=== PATIENT | female | born 1955 | race Caucasian/White ===

== ENCOUNTER → 2019-06-22 13:03 | Outpatient (BNVA) | payer MEDICARE, SELFPAY | PROVIDERS: Family Provider Family Medicine; PCP Internal Medicine Rheumatology; Visit Provider Internal Medicine Rheumatology | DX: M32.9 Systemic lupus erythematosus, unspecified (principal); M79.7 Fibromyalgia; Z79.899 Other long term (current) drug therapy; Z79.52 Long term (current) use of systemic steroids; M15.9 Polyosteoarthritis, unspecified | CPT/HCPCS: 99214 ==

== ENCOUNTER → 2019-09-06 12:54 | Outpatient (BNVA) | payer MEDICARE, SELFPAY | PROVIDERS: Family Provider Family Medicine; PCP Internal Medicine Rheumatology; Visit Provider Internal Medicine Rheumatology | DX: M32.9 Systemic lupus erythematosus, unspecified (principal); Z79.899 Other long term (current) drug therapy | CPT/HCPCS: 36415; 80076; 81001; 82565; 82570; 84156; 85025; 85651; 86140; 86160 ==

== ENCOUNTER → 2019-11-20 16:42 | Outpatient (BNVA) | payer MEDICARE, SELFPAY | PROVIDERS: Family Provider Family Medicine; PCP Internal Medicine Rheumatology; Visit Provider Nurse Practitioner Family | DX: R31.9 Hematuria, unspecified (principal); R35.0 Frequency of micturition | CPT/HCPCS: 81000; 87086 ==

== ENCOUNTER → 2019-11-29 12:52 | Outpatient (BNVA) | payer MEDICARE, SELFPAY | PROVIDERS: Family Provider Family Medicine; PCP Internal Medicine Rheumatology; Visit Provider Internal Medicine Rheumatology | DX: M32.9 Systemic lupus erythematosus, unspecified (principal); Z79.899 Other long term (current) drug therapy | CPT/HCPCS: 36415; 80076; 81001; 82565; 82570; 84156; 85025; 85651; 86140 ==

== ENCOUNTER → 2019-12-06 12:54 | Outpatient (BNVA) | payer MEDICARE, SELFPAY | PROVIDERS: Family Provider Family Medicine; PCP Internal Medicine Rheumatology; Visit Provider Internal Medicine Rheumatology | DX: M32.9 Systemic lupus erythematosus, unspecified (principal); I73.00 Raynaud's syndrome without gangrene; Z79.899 Other long term (current) drug therapy; M79.7 Fibromyalgia; Z79.52 Long term (current) use of systemic steroids; R91.1 Solitary pulmonary nodule; Z87.891 Personal history of nicotine dependence; M19.90 Unspecified osteoarthritis, unspecified site | CPT/HCPCS: 99214 ==

== ENCOUNTER 2019-12-09 10:26 | Outpatient (CLI) | payer MEDICARE, SELFPAY ==
--- NOTE | 2019-12-09 10:30 | XR_ITS ---
WS: [id number] SCREENING DEXA SCAN [id number] CLINICAL INFORMATION: intermediate teacher steroid use COMPARISON: FINDINGS: The L1-L4 bone mineral density measures 0.934 g/cm2. This corresponds to a T score score of -2.0 and Z score of 0.2. Left femoral neck bone mineral density measures 0.579 g/cm2. This corresponds to a T score of -3.4 an d Z score of -1.7. Right femoral neck bone mineral density measures 0.603 g/cm2. This corresponds to a T score -3.2of an d Z score of -1.6. Mean femoral neck bone mineral density measures 0.591 g/cm2. This corresponds to a T score of -3.3 an d Z score of -1.6. XR/XR DEXA axial skeleton* [id number] IMPRESSION: Osteoporosis Patient's FRAX calculated 10 year probability for major osteoporotic fracture i s 34.3 % and osteoporotic hip fracture is 12.7%.
--- NOTE | 2019-12-09 10:33 | XR_ITS ---
WS: [id number] Pelvis, AP view, 12/09/2019 Clinical Data: back pain Comparison: None. Findings: No fractures or dislocations are seen. The SI joints and pubic symphysis are intact. The soft tissues are not remarkable. The hips are normal. XR/XR pelvis 1-2V* [id number] Impression: Negative for fracture.
--- NOTE | 2019-12-09 10:33 | XR_ITS ---
WS: [id number] Thoracic spine, 3 views, 12/09/2019 Clinical Data: back pain Comparison: None. Findings: No compression fractures are seen. The disc heights are normal. The paravertebral regions are normal. Calcified granulomas are seen throughout the lungs. XR/XR thoracic spine 2V 25040 Impression: Negative thoracic spine.
--- NOTE | 2019-12-09 10:33 | XR_ITS ---
WS: [id number] Right RIBS, 3 views, 12/09/2019 Clinical Data: rib pain Comparison: Portable chest, 05/06/2018. Findings: No rib fractures are seen. There is no subcutaneous emphysema or pneumothorax. There are numerous gra nulomatous throughout the right lung. XR/XR ribs RT 2V* [id number] Impression: Negative right rib detail.
== END 2019-12-09 10:27 | disposition home or self-care (01) ==
LOC: RADWPI 10:29
PROVIDERS: Family Provider Family Medicine; PCP Family Medicine; Visit Provider Internal Medicine Rheumatology
DX: Z79.52 Long term (current) use of systemic steroids (principal); M54.9 Dorsalgia, unspecified; R07.81 Pleurodynia; M81.0 Age-related osteoporosis without current pathological fracture
CPT/HCPCS: 71100; 72070; 72170; 77080

== ENCOUNTER 2019-12-14 12:05 | Outpatient (CLI) | payer MEDICARE, SELFPAY ==
--- NOTE | 2019-12-14 12:45 | CT_ITS ---
WS: [id number] CT ABDOMEN AND PELVIS NONCONTRAST HISTORY: ABDOMINAL PAIN, WEIGHT LOSS TECHNIQUE: Imaging performed through the abdomen and pelvis. Coronal and sagittal reformats are submi tted. All CT scans at [facility] use at least one of these dose optimization techniques: automated exposure control; mA and/or kV adjustment per patient size (includes targeted exams where d ose is matched to clinical indication); or iterative reconstruction. DLP: 820.48 mGycm COMPARISON: 01/02/2015 Lower thorax: Chronic emphysematous changes at the lung bases. Benign granulomata. Heart size is norm al. Small hiatal hernia. Liver: Hepatic granulomata. Normal size liver. Gallbladder: Unremarkable. Pancreas: Normal. Spleen: Normal size spleen with multiple granulomata. Adrenal glands: Normal. Right kidney: Normal size with no stones, masses or atrophy. Left kidney: Normal size with no stones, mass or atrophy. Extensive atherosclerosis with no aneurysm. No free fluid, intraperitoneal air or significant lymphadenopathy. GI tract: There is moderate fecal retention throughout the GI tract. Circumferential wall thickening involving the cecum and the distal small bowel. This is a new finding since 2014. The appendix is not definitely identified. No significant diverticular disease. Abdominal wall: Intact. Pelvis: Prior hysterectomy. Normal urinary bladder. No adenopathy or fluid. Osseous structures: Osteopenia. Degenerative disc disease most significant at L5-S1. CT/CT abdomen pelvis wo con [id number] IMPRESSION: 1. Moderate constipation. 2. Cecal and distal small bowel wall thickening without an obstruction. Favor colitis. Due to the length of involvement neoplasm is less likely but not exclu ded. Consider follow-up colonoscopy or repeat CT in 4-6 weeks with IV and oral contrast. 3. Hepatic and splenic granulomata. 4. Extensive atherosclerosis aorta. 5. Prior hysterectomy. 6. Chronic emphysema.
[2019-12-14] MEDS: barium sulfate 450 mL Oral Susp PO (13:07)
== END 2019-12-14 12:06 | disposition home or self-care (01) ==
LOC: RADWPI 12:09
PROVIDERS: Family Provider Family Medicine; PCP Family Medicine; Visit Provider Family Medicine
DX: R10.9 Unspecified abdominal pain (principal); R63.4 Abnormal weight loss; K59.00 Constipation, unspecified; K75.3 Granulomatous hepatitis, not elsewhere classified; I70.0 Atherosclerosis of aorta; J43.9 Emphysema, unspecified
CPT/HCPCS: 74176

== ENCOUNTER 2019-12-21 09:44 | Outpatient (CLI) | payer MEDICARE, SELFPAY ==
--- NOTE | 2019-12-21 09:30 | USCV_ITS ---
Tiana Wayne Age: 64 Gender: F : 1955 Exam Date: 12/21/2019 09:59 Ordering Phys: Jesus Dorado MD (Andy) ([email or web address] [place]) Technologist: Grisel Solis [place]am Location: [facility] [place] Indication: RECHECK CCA STENOSIS Risk Factors: Unknown Previous Vascular Surgery: None Right Brachial BP: / Left Brachial BP: / Right Left Velocity (cm/s) Spectral Plaque Velocity (cm/s) Spectral Plaque Syst/Diast Broadening Syst/Diast Broadening 88.20/ 13.20 Prox CCA 52.60 / 19.20 49.30/ 9.20 Hetro Mid CCA 44.60 / 11.30 Hetro 45.40/ 11.20 Hetro Distal CCA 30.40 / 6.40 Hetro 49.50/ 14.50 Hetro Prox ICA 127.40/ 24.50 Hetro 54.90/ 16.30 Hetro Mid ICA 187.80/ 45.70 Hetro 52.50/ 19.30 Distal ICA 209.00/ 40.80 61.10 Hetro ECA 79.00 1.11 ICA/CCA 4.68 Antegrade Vertebral Antegrade 45.30/ 10.90 cm/s 75.80/ 12.80 cm/s Tri Subclavian Tri 104.3 79.00 0 FINDINGS Comparison:. 03/02/19. Diffuse bilateral scattered calcified plaque and intimal thickening throughout the common carotid arteries and extending through the bifurcation. Mild turbulence of flow on the right. No change in velocity of stenosis. Moderate elevation of velocity left ICA similar to prior exam. CONCLUSIONS Left ICA stenosis 50-69%. Similar to prior study and stenosis closer to 69%. Right ICA stenosis < 50%. Diffuse bilateral calcified plaque. Dr. Charisse Boggs DO (Electronically Signed) Final Date: 21 December 2019 14:15 S
== END 2019-12-21 09:45 | disposition home or self-care (01) ==
LOC: RAD 09:48
PROVIDERS: Family Provider Family Medicine; PCP Family Medicine; Visit Provider Thoracic Surgery (Cardiothoracic Vascular Surgery)
DX: I65.23 Occlusion and stenosis of bilateral carotid arteries (principal)
CPT/HCPCS: 93880

== ENCOUNTER 2020-01-27 12:51 | Outpatient (CLI) | payer MEDICARE, SELFPAY ==
--- NOTE | 2020-01-27 12:58 | CT_ITS ---
WS: [id number] CT CHEST, ABDOMEN, AND PELVIS TECHNIQUE: Contrast-enhanced CT of the chest, abdomen, and pelvis with coronal and sagittal reformatt ed images. CLINICAL INFORMATION: CONSTIPATION/ABNORMAL FINDING OF LUNG FIELD COMPARISON: Multiple prior examinations including CT abdomen pelvis December 06, 2019, CT chest October 26, 2019, July 06, 2019, PET/CT and CT chest DLP: 941.[address] scans at [facility] use at least one of these dose optimization techniques: automat ed exposure control; mA and/or kV adjustment per patient size (includes targeted exams where dose is matched to clinical indication); or iterative reconstruction. CT CHEST: Advanced chronic emphysematous changes. Noncalcified pulmonary opacity in the left upper lobe measuri ng 7 mm. Additional lobulated micronodular opacities in the right upper lobe measuring 9 mm. Addition al tree-in-bud infiltrates in both lower lobes can be seen with small airways disease. Additional 3 m m noncalcified nodule right upper lobe. Scattered fibrosis in both lungs. A few calcified granulomas. Normal thyroid gland. Aortic calcificat ion. No axillary lymphadenopathy. Calcified right hilar lymph nodes. CT ABDOMEN AND PELVIS: Normal liver. Normal portal vein and splenic vein. Splenic granulomas. Adrenal glands are normal. Nor mal renal parenchymal enhancement. No hydronephrosis. Aortic calcification. Normal caliber abdominal aorta. Gallbladder is contracted. Normal GE junction. No evidence of small or large bowel obstruction. Const ipation improved from previous. No free fluid in the pelvis. No periaortic or inguinal lymphadenopath y. Mild thoracic curve. No acute appearing compression fractures. Mild disc space narrowing L3-L4 and L5-S1. CT/CT chest abd pel w con* IMPRESSION: 1. Prior hysterectomy. 2. Previously described cecal and distal small bowel wall thickening is less p rominent today. No evidence of small or large bowel obstruction. 3. Moderate chronic emphysematous changes. 4. Noncalcified spiculated pulmonary nodule in the left upper lobe measuring 7 mm previously was shown to be FDG avid suspicious for neoplasm. This is unchan ged since October 26, 2019. 5. Additional micronodular opacities in the right upper lobe similar to the p rior examination. 6. Mild tree-in-bud infiltrates in the lower lobes. 7. Subsegmental atelectasis and scattered fibrosis in both lungs. 8. No mediastinal or hilar lymphadenopathy. 9. No abdominal or pelvic lymphadenopathy.
[2020-01-27] MEDS: iohexol 300 mg/mL 50 mL Btl PO (13:26)
[2020-01-27 14:00] LABS: Blood Urea Nitrogen 10 mg/dL (8-23); Glomerular Filtration Rate 160.2 mL/min (90-130)
[2020-01-27] MEDS: iodixanol 320 mg/mL 100mL Btl IV (14:27)
== END 2020-01-27 12:52 | disposition home or self-care (01) ==
LOC: RAD 12:52
PROVIDERS: PCP Family Medicine; Visit Provider Family Medicine
DX: K52.9 Noninfective gastroenteritis and colitis, unspecified (principal); K59.00 Constipation, unspecified; R91.8 Other nonspecific abnormal finding of lung field; R91.1 Solitary pulmonary nodule; J98.11 Atelectasis
CPT/HCPCS: 36415; 71260; 74177; 82565; 84520

== ENCOUNTER → 2020-04-27 14:58 | Outpatient (BNVA) | payer MEDICARE, SELFPAY | PROVIDERS: PCP Family Medicine; Visit Provider Internal Medicine Rheumatology | DX: M32.9 Systemic lupus erythematosus, unspecified (principal); R76.8 Other specified abnormal immunological findings in serum; Z79.899 Other long term (current) drug therapy; M15.9 Polyosteoarthritis, unspecified; M79.7 Fibromyalgia; I47.1 Supraventricular tachycardia; I65.29 Occlusion and stenosis of unspecified carotid artery; Z87.891 Personal history of nicotine dependence | CPT/HCPCS: 36415; 80076; 81001; 82306; 82310; 82565; 82570; 84156; 85025; 85651; 86140; 86160; 99214 ==

== ENCOUNTER → 2020-06-22 11:22 | Outpatient (BNVA) | payer MEDICARE, OTHER, SELFPAY | PROVIDERS: PCP Family Medicine; Visit Provider Internal Medicine Rheumatology | DX: M32.9 Systemic lupus erythematosus, unspecified (principal); Z79.899 Other long term (current) drug therapy; M19.90 Unspecified osteoarthritis, unspecified site | CPT/HCPCS: 36415; 80076; 81001; 82565; 84156; 85025; 86140; 86160; 87086 ==

== ENCOUNTER 2020-07-25 12:20 | Outpatient (CLI) | payer MEDICARE, OTHER, SELFPAY ==
--- NOTE | 2020-07-25 12:45 | USCV_ITS ---
Tiana Wayne Age: 65 Gender: F : 1955 Exam Date: 07/25/2020 12:51 Ordering Phys: Jesus Dorado MD (Andy) ([email or web address] [place]) Technologist: Joann Ricks Exam Location: [facility] [place] Indication: STENOSIS Risk Factors: Previous Vascular Surgery: Right Brachial BP: / Left Brachial BP: / Right Left Velocity (cm/s) Spectral Plaque Velocity (cm/s) Spectral Plaque Syst/Diast Broadening Syst/Diast Broadening 80.50/ 22.10 Prox CCA 89.30 / 22.10 52.90/ 16.50 Mid CCA 80.50 / 20.90 55.20/ 8.50 Distal CCA 66.20 / 15.40 69.50/ 17.60 Prox ICA 260.30/ 73.60 61.70/ 18.70 Mid ICA 257.70/ 68.40 67.30/ 16.50 Distal ICA 113.10/ 26.30 93.70 ECA 118.00 0.86 ICA/CCA 2.91 Antegrade Vertebral Antegrade 41.90/ 8.80 cm/s 58.30/ 20.10 cm/s Tri Subclavian Tri FINDINGS Heavy heterogeneous irregular plaques at the left bifurcation and proximal to mid ICA on the left side. Mild to moderate plaques of the right bifurcation and proximal ICA. Intimal thickening in the common carotid arteries bilaterally. Antegrade flow in the vertebral arteries bilaterally. Normal Doppler flow velocities in the subclavian arteries bilaterally CONCLUSIONS Heavy heterogeneous irregular plaques at the left bifurcation and proximal to mid ICA on the left side with features suggestive of greater than 70% stenosis Mild to moderate plaques of the right bifurcation with features suggestive of less than 50% gnosis Intimal thickening in the common carotid arteries bilaterally Compared to the study from 12/21/2019, there is some worsening of stenosis on the left side Dr Alanna Dupont MD [facility] (Electronically Signed) Final Date: 26 July 2020 01:05 S
== END 2020-07-25 12:21 | disposition home or self-care (01) ==
LOC: RAD 12:23
PROVIDERS: PCP Family Medicine; Visit Provider Thoracic Surgery (Cardiothoracic Vascular Surgery)
DX: I65.23 Occlusion and stenosis of bilateral carotid arteries (principal)
CPT/HCPCS: 93880

== ENCOUNTER → 2020-09-06 12:54 | Outpatient (BNVA) | payer MEDICARE, OTHER, SELFPAY | PROVIDERS: PCP Family Medicine; Visit Provider Internal Medicine Rheumatology | DX: M32.9 Systemic lupus erythematosus, unspecified (principal); M15.9 Polyosteoarthritis, unspecified; Z79.899 Other long term (current) drug therapy; M47.892 Other spondylosis, cervical region; M47.896 Other spondylosis, lumbar region; M79.7 Fibromyalgia; D64.9 Anemia, unspecified; Z87.891 Personal history of nicotine dependence | CPT/HCPCS: 99214 ==

== ENCOUNTER → 2020-09-11 14:06 | Outpatient (BNVA) | payer MEDICARE, OTHER, SELFPAY | PROVIDERS: PCP Family Medicine; Visit Provider Podiatrist Foot & Ankle Surgery | DX: M25.572 Pain in left ankle and joints of left foot (principal) | CPT/HCPCS: 73630 ==

== ENCOUNTER 2020-10-19 12:00 | Outpatient (CLI) | payer MEDICARE, OTHER, SELFPAY | END 2020-10-19 12:01 | disposition home or self-care (01) | LOC: SLEEP 10-24 08:54 | PROVIDERS: PCP Family Medicine; Visit Provider Internal Medicine Critical Care Medicine | DX: J96.12 Chronic respiratory failure with hypercapnia (principal) | CPT/HCPCS: 94762 ==

== ENCOUNTER 2020-11-07 12:46 | Outpatient (CLI) | payer MEDICARE, SELFPAY ==
--- NOTE | 2020-11-07 13:00 | CT_ITS ---
WS: [id number] CT CHEST TECHNIQUE: Noncontrast CT of the chest with coronal and sagittal reformatted images. CLINICAL INFORMATION: Pulmonary nodule COMPARISON: CT 01/27/2020 and 10/26/2019 July 06, 2019 DLP: 533.[address] scans at [facility] use at least one of these dose optimization techniques: automat ed exposure control; mA and/or kV adjustment per patient size (includes targeted exams where dose is matched to clinical indication); or iterative reconstruction. FINDINGS: Moderate chronic emphysematous changes. Increased spiculated pulmonary nodule left upper lobe measur ing 8.8 mm suspicious for neoplasm. This appears more solid today. This was previously shown to be FD G avid most consistent with neoplasm. Micronodular and tree-in-bud opacities in right upper lobe and bilateral lower lobes similar to previ ous. No mediastinal or hilar lymphadenopathy. Several new subcentimeter approximately 3 mm noncalcifi ed nodules in both lungs some subpleural in location. These may be inflammatory. Bibasal atelectasis. Scattered fibrosis in both lungs. Subsegmental atelectasis/fibrosis in the right middle lobe.. Calcified granulomatous disease. Normal thyroid gland. Aortic calcification. Calcified hilar lymph no wilfredo. CT/CT chest wo con [id number] IMPRESSION: 1. Progressed slightly spiculated pulmonary nodule left upper lobe measuring 8 .8 mm suspicious for neoplasm. This appears slightly larger and more solid in a ppearance today. Previously this was demonstrated to be FDG avid. 2. No other significant changes from previous. 3. No mediastinal or hilar lymphadenopathy. 4. Aortic calcification. 5. Stable tree-in-bud micronodular opacities described above. 6. Several new noncalcified subcentimeter nodules largest measuring approximat atul 3 mm within both lungs. Some of these may be inflammatory. Recommend 6 yovany h follow-up.
== END 2020-11-07 12:47 | disposition home or self-care (01) ==
PROVIDERS: PCP Family Medicine; Visit Provider Internal Medicine Critical Care Medicine
DX: R91.1 Solitary pulmonary nodule (principal); I70.0 Atherosclerosis of aorta
CPT/HCPCS: 71250

== ENCOUNTER 2020-11-24 15:11 | Outpatient (CLI) | payer MEDICARE, SELFPAY ==
--- NOTE | 2020-11-24 11:00 | USCV_ITS ---
Tone Tiana Age: 65 Gender: F : 1955 Exam Date: 11/24/2020 15:40 Ordering Phys: Kaleigh Carlson MD Technologist: Grisel Solis Exam Location: [facility] [place] Indication: SOB WITH CHEST PAIN BP: 119 / 69 HR: 90 Rhythm: Sinus Technical Quality: Fair MEASUREMENTS (Male / Female) Normal Values 2D ECHO LV Diastolic Diameter PLAX 2.9 cm 4.2 - 5.9 / 3.9 - 5.3 cm LV Systolic Diameter PLAX 1.4 cm LV Chamber Size 3.4 cm IVS Diastolic Thickness 0.9 cm 0.6 - 1.0 / 0.6 - 0.9 cm IVS Systolic Thickness 1.1 cm LVPW Diastolic Thickness 1.5 cm 0.6 - 1.0 / 0.6 - 0.9 cm LVPW Systolic Thickness 1.9 cm RV Chamber Size 3.0 cm LVOT Diameter 2.0 cm LV Ejection Fraction 2D Teich 83.4 % LV Ejection Fraction MOD 2C 59.8 % LV Ejection Fraction 2C AL 59.7 % LA Diameter 2.5 cm LA Width 2.5 cm LA Height 2.8 cm RA Width 2.3 cm RA Height 2.9 cm Aorta at Sinotubular Diameter 2.2 cm M-MODE LV Diastolic Diameter MM 3.8 cm 4.2 - 5.9 / 3.9 - 5.3 cm LV Systolic Diameter MM 1.8 cm LV Ejection Fraction MM Teich 82.6 % IVS Diastolic Thickness MM 0.8 cm 0.6 - 1.0 / 0.6 - 0.9 cm IVS Systolic Thickness MM 1.1 cm LVPW Diastolic Thickness MM 1.1 cm 0.6 - 1.0 / 0.6 - 0.9 cm LVPW Systolic Thickness MM 1.3 cm RV Diastolic Diameter MM 1.5 cm Aortic Annulus Diameter 2.5 cm LA Ao Ratio MM 1.2 MV E Point Septal Separation 0.2 cm DOPPLER AV Peak Velocity 140.0 cm/s LVOT Peak Velocity 122.0 cm/s AV Area Cont Eq vti 2.7 cm squared AV Area Cont Eq pk 2.7 cm squared MV Area PHT 5.8 cm squared Mitral E to A Ratio 1.3 MV E' Velocity 63.0 cm/s Mitral E to MV E' Ratio 9.8 Mitral E to LV E' Lateral Ratio 11.6 Mitral E to LV E' Septal Ratio 8.5 TR Peak Velocity 299.7 cm/s TR Peak Gradient 35.9 mmHg TR Mean Velocity 218.9 cm/s TR Mean Gradient 21.8 mmHg TR Velocity Time Integral 97.4 cm TV Peak E Velocity 72.0 cm/s Right Atrial Pressure 3.0 mmHg Pulmonary Artery Systolic Pressu 38.9 mmHg PV Peak Velocity 63.0 cm/s RV Acceleration Time 0.1 s RV Ejection Time 0.3 s RV AcT/ET 0.3 FINDINGS Left Ventricle Normal left ventricular size. LV systolic function is normal with EF of 60-65%. No regional wall motion abnormalities. Normal diastolic filling pattern. Right Ventricle The right ventricle is normal in size and function. Right Atrium The right atrium is normal in size. Left Atrium The left atrium is normal in size. Mitral Valve Structurally normal mitral valve without significant stenosis or prolapse. There is no mitral regurgitation. Aortic Valve Structurally normal aortic valve without significant sclerosis or stenosis. There is no aortic regurgitation. Tricuspid Valve Structurally normal tricuspid valve without significant stenosis. Mild tricuspid regurgitation. RVSP is 45-50mmHg. This is consistent with moderate pulmonary hypertension Pulmonic Valve Structurally normal pulmonic valve without significant stenosis. There is no pulmonic regurgitation. Pericardium Normal pericardium without effusion. Aorta Normal ascending aorta dimension. CONCLUSIONS LV systolic function is normal with EF of 60-65% Diastolic function is normal Moderate pulmonary hypertension Compared to prior echocardiogram from 05/09/2016, patient is noted to have pulmonary hypertension now Nash Clancy MD (Electronically Signed) Final Date: 03 December 2020 17:50 S
== END 2020-11-24 15:12 | disposition home or self-care (01) ==
LOC: RAD 15:14
PROVIDERS: PCP Family Medicine; Visit Provider Internal Medicine Critical Care Medicine
DX: R06.02 Shortness of breath (principal); R07.9 Chest pain, unspecified; I27.20 Pulmonary hypertension, unspecified
CPT/HCPCS: 93306

== ENCOUNTER 2020-11-28 09:52 | Outpatient (CLI) | payer MEDICARE, SELFPAY ==
--- NOTE | 2020-11-28 18:55 | ONC CON_ITS ---
Dr. Wayne New Patient Note Patient: Tiana Wayne Unit #: [id number]: 1955 Dicatated By: Morgan Wayne M.D.Date of Visit: Nov 28, 2020 Onc MED New Patient/Consult Referring Physician: Dr. BARB CARLSON M.D. Chief Complaint: Pulmonary nodule/suspected lung cancer. History of Present Illness: This is a 65-year-old woman with CT evidence of left upper lobe pulmonary nodule and suspected lung cancer. She has multiple medical illnesses, the most significant being COPD and longstanding systemic lupus erythematosus. She is oxygen dependent. She has been followed for small pulmonary nodules by CT scan dating back to at least 2010. A prior PET/CT in February 2015 showed a small area of pneumonitis in the medial segment of the right middle lobe with SUV less than 1.0. There were no findings which were suspicious for malignancy. A follow-up chest CT on 12/17/2018 showed an enlarging apical posterior segment left upper lobe nodule which was felt to be suspicious for neoplasm. A repeat PET/CT on 01/09/2019 showed a solid left upper lobe nodule measuring 7 mm with SUV 1.4. It was felt to have a high probability of malignancy. On a repeat chest CT on 04/09/2019 the left upper lobe nodule appeared stable, measuring 8 mm. There is no mediastinal or hilar adenopathy noted. She had repeat chest CT scans in June 2019 and in October 2019, but for some reason neither of those reports are occluded in [facility]. Her chest CT on 01/18/2020 showed stable noncalcified pulmonary opacity in the left upper lobe measuring 7 mm[address] Her most recent CT, from 11/07/2020, showed slight progression of the left upper lobe nodule measuring 8.8 mm. There was no mediastinal or hilar adenopathy noted. Several new noncalcified subcentimeter nodules were noted within both lungs, the largest measuring approximately 3 mm. As noted, she has oxygen dependent COPD. She has very limited activity tolerance, but she is ambulatory and she is able to live independently. Her ECOG score is 2. Her family says that she eats like a bird. Her weight fluctuates up and down. She has not had fever or night sweats. She does report having chills. Her main complaint now is that for the past 3 months she has been having pain in her epigastric area. The pain is significant enough to affect her breathing. She has been taking Prilosec, she says it is not really helping. She has some cough, but not a lot. She occasionally has sharp chest pain. She does not complain of nausea and she is not having any obvious acid reflux symptoms. She does complain that she keeps a lot of gas. The epigastric pain oftentimes wakes her up around 3 or 4 AM. Her bowel function has been pretty good. She has no complaints. She has fairly generalized joint pain including the hands, wrists, elbows, hips, and knees. She also has pain in her neck and back. She has headache about every other day and she also complains of dizziness. She has some numbness in her fingers and in her feet. Past Medical History: Her medical history includes carotid artery disease, cervical sponylosis with radiculopathy, chronic obstructive pulmonary disease, fibromyalgia, history of pulmonary embolilsm, Raynaud's phenomenon, systemic lupus erythematosus, and Vitamin D deficiency. Past Surgical History: Her surgical/procedural history includes section x 2, hysterectomy, and tonsillectomy. Medications: ALPRAZolam (0.25 mg) Tablet Oral daily PRN, Apixaban (2.5 mg) Tablet Oral b.i.d., Azithromycin (250 mg) Tablet Oral daily, Budesonide (90 mcg/act) Aerosol Powder, Breath Activated Inhalation b.i.d., Cholecalciferol (25 mcg ) Tablet Oral daily, Diclofenac Sodium Gel (jelly) Topical four times a day PRN, Fish Oil [place]-3 Capsule Oral daily, Formoterol Fumarate (20 mcg/2mL) Nebulization solution Inhalation b.i.d., Furosemide (20 mg) Tablet Oral daily, HYDROcodone-Acetaminophen (5-325 mg) Tablet Oral four times a day PRN, Hydroxychloroquine Sulfate (200 mg) Tablet Oral daily, Leflunomide (20 mg) Tablet Oral daily, Metoprolol Succinate ER (25 mg) Tablet SR 24 HR Oral b.i.d., Omeprazole (40 mg) Capsule Delayed Release Oral daily, Ondansetron HCl (4 mg) Tablet Oral t.i.d. PRN, Potassium Chloride ER (10 meq) Capsule, controlled release Oral daily, Revefenacin (175 mcg/3mL) Solution Inhalation daily, Sertraline HCl (25 mg) Tablet Oral daily, Ventolin HFA (108 (90 base) mcg/act) Aerosol, solution Inhalation four times a day PRN Allergies: Ciprofloxacin HCl, Dicloxacillin Sodium, Digoxin, and Iodinated Contrast Media. Social History: Ms. Wayne is . She has a history of smoking 1 pack of cigarettes daily beginning at age 13. She quit smoking in 2013. She has had just very occasional alcohol use. Family History: Father of lung cancer at age 80. Her paternal grandmother also had lung cancer. Mother with Alzheimer's dementia at age 77. A sister also has lupus. Another sister and a brother are in good health. Review Of Symptoms: Constitutional - She has limited activity tolerance, but she is still ambulatory and able to live independently. She does not have good appetite. Her family says she eats like a bird. Her weight is up and down. She does not have fever or night sweats, but she does complain of having chills. ECOG score is 2, Eyes - She says her vision is getting worse, ENMT - No hearing loss or tinnitus. She does complain of the oxygen dries out her nose, mouth, and throat. She does not have difficulty swallowing, Hematologic/Lymphatic - She has easy bruising, Respiratory - She has shortness of breath and she is on continuous oxygen. Lately she has had more difficulty breathing due to the pain in her upper abdomen. She has some cough, but not a lot. No pleuritic pain or hemoptysis, Cardiovascular - No angina pain. No palpitations, Gastrointestinal - No nausea or vomiting. No heartburn or acid reflux. She does complain that she has a lot of gas, and she has been having pain in her epigastric area. It oftentimes wakes her up at 3 or 4 AM. Bowel function is pretty good. No blood in the stool or black stools, Genitourinary (F) - No dysuria or hematuria. No urinary frequency. No urgency or incontinence, Musculoskeletal - She has fairly generalized joint pain including the hands, elbows, wrists, hips, and knees. She also has neck and back pain, Integumentary - Her skin is dry and itchy, Neurologic - She has headache about every other day. She also complains of dizziness. She has numbness in her fingers and feet, Psychiatric - She has anxiety and panic attacks. No depression. She has difficulty sleeping. Vital Signs: Performed on Nov 28, 2020 11:28: 7, 8, 20.16, 1.48 sq.m, 62 in, 98 %, 78 /min, 18 /min, 164/61 mm(hg) (HIGH), 97.0 F (LOW), and 110.2 lbs (HIGH). Physical Examination: Constitutional - She appears generally weak and chronically ill, Eyes - Sclerae nonicteric. Conjunctivae clear, ENMT - No lesions noted in the oral cavity, Neck - No mass or thyromegaly, Hematologic/Lymphatic - No cervical, clavicular, or axillary adenopathy, Respiratory - Lungs are clear with diminished air movement bilaterally, Cardiovascular - Heart rhythm is regular. There is no murmur, gallop, or rub noted, Abdomen - Soft. There is mild tenderness in the epigastric area. Liver and spleen are not enlarged. There is no abdominal mass or ascites noted and there is no inguinal adenopathy, Back/Spine - No spine or CVA tenderness noted, Extremities - There is mild lower extremity edema. Dorsalis pedis pulses are palpable bilaterally, Integumentary - No rashes. No suspicious skin lesions noted, Neurologic - No focal neurologic deficits noted. Problem List: 1. Noncalcified left upper lobe pulmonary nodule which was previously PET positive and suspicious for malignancy. 2. Oxygen dependent COPD. 3. Systemic lupus. 4. Carotid artery disease. 5. Fibromyalgia. 6. Degenerative disease of the spine. 7. Vitamin D deficiency. 8. History of pulmonary embolism. 9. Chronic anxiety. Problems Addressed with this Encounter and Plan: Patient with noncalcified left upper lobe pulmonary nodule which was previously PET positive and felt to be suspicious for malignancy. Her recent chest CT reported a slight increase in the size of the pulmonary nodule, which further increases the suspicion for malignancy. Management is complicated by severe COPD and additional comorbidities. She has very marginal performance status. She would be at high risk for complications with any type of biopsy procedure, and she would be medically unsuitable for surgical resection. If we were to consider treating this as lung cancer, the lesion would potentially be amenable to SBRT, but it would have to be done without the benefit of biopsy/tissue diagnosis. On my independent review of the CT scan with the patient and her family, there does not appear to be a significant change in the left upper lobe nodule compared to the previous CT scan from October 2019. There has been, at most, only very minimal change during a follow-up. Of close to 2 years. While I cannot exclude the possibility of this being a very slowly progressive malignancy, in this situation I think the best option is to continue with surveillance/expectant management with repeat CT scans at 6-month intervals. If there is a significant increase in the size of the lesion, it would be reasonable then to consider SBRT without a biopsy. At this point, I do not feel that the CT findings are significant enough to justify empiric treatment. At least for now she is going to continue her regular follow-up with Dr. Carlson. I will plan to see her again as needed. Signed By: Morgan Wayne M.D. <<Signature on File>>
== END 2020-11-28 09:53 | disposition home or self-care (01) ==
LOC: ONCMED 09:56
PROVIDERS: PCP Family Medicine; Visit Provider Internal Medicine Medical Oncology
DX: R91.1 Solitary pulmonary nodule (principal); J44.9 Chronic obstructive pulmonary disease, unspecified; Z99.81 Dependence on supplemental oxygen; M32.9 Systemic lupus erythematosus, unspecified; I25.10 Atherosclerotic heart disease of native coronary artery without angina pectoris; M79.7 Fibromyalgia; M47.9 Spondylosis, unspecified; E55.9 Vitamin D deficiency, unspecified; Z86.711 Personal history of pulmonary embolism; F41.9 Anxiety disorder, unspecified; Z79.899 Other long term (current) drug therapy
CPT/HCPCS: 99205

== ENCOUNTER 2020-12-08 12:35 | Outpatient (CLI) | payer MEDICARE, SELFPAY ==
--- NOTE | 2020-12-08 12:51 | MR_ITS ---
WS: [id number] MRA HEAD TECHNIQUE: Axial 3-D TOF images obtained with axial images and axial, sagittal, and coronal 2-D refor matted images. CLINICAL INFORMATION: UNSPECIFIED HEARING LOSS, UNSPECIFIED EAR COMPARISON: None. FINDINGS: Dominant distal left vertebral artery. Right vertebral artery ends in PICA. Basilar artery is patent. Normal vascularity to the RAGMAN territory bilaterally. Patent right posterior communicating artery. Both ICAs are patent at the skull base. Normal petrous ICAs. No evidence of aberrant ICA. Patent anterior communicating artery. Normal vascularity to the SHU and MCA territories bilaterally. No evidence of flow-limiting stenosis or aneurysm. MR/MR angio head wo con [id number] IMPRESSION: Normal intracranial MRA.
--- NOTE | 2020-12-08 12:52 | MR_ITS ---
WS: [id number] INDICATION: Right ear pain and headaches dizziness TECHNIQUE: MR venogram with multiplanar reformatted images. FINDINGS: Normal sagittal sinus. Normal straight sinus. Sigmoid sinuses are normal. Normal transverse sinuses. Normal internal cerebral veins. Distal jugular veins are normal. No evidence of dural sinus thrombosis. MR/[place] [id number] IMPRESSION: Normal MR venogram.
--- NOTE | 2020-12-08 13:03 | CT_ITS ---
WS: [id number] CT scan of the temporal bones. Additional two-dimensional coronal and sagittal reconstruction was per formed. 12/08/2020 Clinical Data: HEARING Loss, tinnitus UNSPECIFIED EAR Comparison: None. DLP: 712.[address] scans at [facility] use at least one of these dose optimization techniques: automat ed exposure control; mA and/or kV adjustment per patient size (includes targeted exams where dose is matched to clinical indication); or iterative reconstruction. Findings: The external auditory canals are normal. The malleolus, incus and stapes appear to be normal. The se micircular canals show no erosions. The internal auditory canal is normal. The attic shows no erosion or evidence of a cholesteatoma. The adjacent mastoid air cells appear to be normal. The carotid autumn ls are not eroded. There is mucoperiosteal thickening of the right maxillary sinus. The mastoid air c ells are not remarkable. CT/CT temporal bone wo con* [id number] Impression: Negative CT scan of the temporal bones.
== END 2020-12-08 12:36 | disposition home or self-care (01) ==
LOC: RADWPI 12:40
PROVIDERS: PCP Family Medicine; Visit Provider Specialist
DX: H91.90 Unspecified hearing loss, unspecified ear (principal); H93.19 Tinnitus, unspecified ear
CPT/HCPCS: 70480; 70544

== ENCOUNTER 2020-12-26 13:30 | Outpatient (CLI) | payer MEDICARE, SELFPAY ==
[2020-12-26 14:05] LABS: ABG PH Result 7.34 (7.35-7.45); Blood Gas Allen Test Pos; Blood Gas Sample Site Radial, left; Blood Gas Sample Type Arterial; Carboxyhemoglobin 1.6 %THgb (0.4-20.1); HCO3 ABG 33.3 mmol/L (22-26); HGB O2 Sat 93.5 % (95-100); Ionized Calcium Level - ABG 1.2 mmol/L (1.1-1.4); Methemoglobin 1.2 % (0.4-1.5); Oxygen Device NC; Oxygen Saturation ABG 96.3; PO2 ABG 85.1 mmHg (80.0-100.0); Potassium Level - ABG 4.6 mmol/L (3.5-5.0); Total Hemoglobin < 4.5 g/dL (12-16)
[2020-12-26 15:24] LABS: ABG PCO2 61.4 mmHg (35-45)
== END 2020-12-26 13:31 | disposition home or self-care (01) ==
PROVIDERS: PCP Family Medicine; Visit Provider Internal Medicine Critical Care Medicine
DX: J96.12 Chronic respiratory failure with hypercapnia (principal)
CPT/HCPCS: 80051; 82330; 82805

== ENCOUNTER 2021-01-09 10:37 | Inpatient (IN) | payer MEDICARE, SELFPAY ==
[2021-01-09] VITALS (18 sets, daily range): BP systolic 98–174; BP diastolic 50–91; PULSE 78–100; RESP 18–28; TEMP 36.4–36.8; O2SAT 3–100; BMI 38.4
--- NOTE | 2021-01-09 10:59 | ED_ITS ---
HPI - General Adult General: Chief complaint: ER Hold Stated complaint: weak/low hgb Time Seen by Provider: 01/09/21 10:59 History of Present Illness: HPI narrative: Ms. Wayne is a 65-year-old lady with complex past medical history including chronic hypoxic respiratory failure on 3 L at baseline, lupus, pulmonary embolism on Eliquis, COPD, CAD who presents to the emergency department due to generalized fatigue and malaise. Additionally she was told that she has abnormally low hemoglobin. She reports approximately 1 month gradual onset of symptoms. She has profound fatigue and weakness. Weakness is generalized and no focality noted. Symptoms have p rogressed and now are severe in nature. Her symptoms are worse with exertion however do not go with rest. She denies obvious source of blood loss including dark tarry stools. She reports eating and drinking normally. No other significant changes in health, provoking, exacerbating, or alleviating factors identified. Review of Systems General: Reports: 10 or more systems reviewed and unremarkable except in HPI and below Narrative: CONSTITUTIONAL: denies fever, generalized fatigue and weakness EYES - denies pain, denies loss of vision EARS - denies ear issues. NOSE - denies congestion or rhinorrhea. THROAT - denies sore throat or difficulty swallowing. CARDIOVASCULAR - denies chest pain and palpitations RESPIRATORY - denies shortness of breath and cough GASTROINTESTINAL - denies abdominal pain, no nausea vomiting, no changes in bowel habits GENITOURINARY - denies dysuria or urinary frequency, no hematuria MUSCULOSKELETAL- denies deformity or pain SKIN - denies rashes or new changed skin lesions NEUROLOGIC - denies focal weakness or sensory changes HEMATOLOGIC/LYMPHATIC - positive for easy bruising but denies lymphadenopathy. [facility] ED PFSH: Medical History Anemia Carotid artery disease without cerebral infarction Cervical spondylosis with radiculopathy Chilblain lupus Current chronic use of systemic steroids Fibromyalgia High risk medication use Immunization counseling Immunosuppression Osteoporosis Pulmonary nodule, left Raynaud's phenomenon (secondary) Systemic lupus erythematosus (SLE) in adult Vitamin D deficiency Surgical History H/O: H/O: hysterectomy History of tonsillectomy Family History Other CAD (coronary artery disease) Cancer Hypertension Lung disease Denies family history of Rheumatoid arthritis Diabetes Chronic kidney disease (CKD) Systemic lupus erythematosus (SLE) in adult Stroke Social History Smoking and tobacco status: former smoker Quit status (tobacco): has quit using tobacco Year quit tobacco: 2014 - PPD x 25 Years Second hand smoke exposure: Yes Alcohol intake: never Lives independently: Yes Household members: children Marital status: / Current occupational status: disabled History of recent travel: No Current gender identity: Female Physical Exam Narrative: EXAM NARRATIVE: GENERAL/CONSTITUTIONAL - frail-appearing. pale. No acute distress. Eyes - PERRL, no conjunctival injection. Conjunctiva are pale. ENMT - Atraumatic external nose and ears. Moist mucous membranes NECK - supple. trachea midline CARDIOVASCULAR - regular rate and rhythm. Peripheral pulses 2+ and equal RESPIRATORY -clear to auscultation bilaterally. No retractions or accessory muscle use. ABDOMEN/GI - Nontender/Nondistended. No tenderness to percussion or evidence of peritonitis MSK - Extremities without obvious deformity or tenderness to palpation SKIN - Warm, Dry, pale NEURO - alert and appropriately oriented. strength and sensation intact. Moves all extremities equally. PSYCH - Appropriate mood and affect Course ED course: - Patient was seen and evaluated by me at bedside - Patient placed on cardiac monitors, IV access obtained - Initial evaluation notable for pale appearance, no acute distress. - Labs notable for hemoglobin of 3.2 -Guaiac with brown stool that is grossly Hemoccult positive -Patient consented for blood transfusion and transfusion ordered - Upon serial reexamination after treatment the patient was similar - Based on patient history, evaluation, labs, and imaging as interpreted the most likely cause of the patient's condition is GI bleed with symptomatic anemia - The results of ED evaluation were discussed with the patient including plan for admission due to requirement for level of care not available if discharged to prevent significant worsening/deterioration. -Hospitalist service contacted and agreed to admit the patient. Endoscopist also is consulted. - Patient was admitted without further deterioration or significant events. Vital Signs: Vital signs: Vital Signs Temperature 97.1 F L 01/11/21 13:40 Pulse Rate 83 01/11/21 13:54 Respiratory Rate 16 01/11/21 13:54 Blood Pressure 142/71 01/11/21 13:54 Pulse Oximetry 100 01/11/21 13:54 [facility] - General Adult Medical Records: Attestation: I reviewed the patient's medical records. Lab Data: Attestation: I reviewed the patient's lab results. Labs: Lab Results 01/09/21 01/09/21 01/09/21 Range/Units 11:51 11:51 11:51 WBC 8.5 (4.0-10.0) 10^3/ uL RBC 1.76 L (4.1-5.3) 10^6/u L Hgb 3.2 L* (11.5-15.3) g/dL Hct 12.2 L* (37.0-47.0) % MCV 69.3 L (81-99) fl MCH 18.2 L (28.0-34.0) pg MCHC 26.2 L (30.0-36.0) g/dL RDW 19.3 H (12.1-15.1) % Plt Count 183 (130-400) 10^3/c mm MPV 9.6 (7.4-10.4) fL Neut % (Auto) 85.4 % Lymph % (Auto) 7.6 % [place] % (Auto) 6.1 % Eos % (Auto) 0.1 % Baso % (Auto) 0.2 % Neut # (Auto) 7.27 (1.8-7.7) 10^3/u L Lymph # (Auto) 0.7 L (0.8-4.8) 10^3/u L [place] # (Auto) 0.5 (0.2-0.9) 10^3/u L Eos # (Auto) 0.0 (0.0-0.8) 10^3/u L Baso # (Auto) 0.0 (0.0-0.1) 10^3/u L Nucleated RBC % (a uto) 0.7 % Nucleated RBCs # 0.1 /100WBC PT 21.10 H (12.1-14.9) SECO NDS INR 1.78 H (0.8-1.2) Sodium 137 (136-145) mmol/L Potassium 4.7 (3.5-5.1) mmol/L Chloride 94 L (98-107) mmol/L Carbon Dioxide 36 H (22-29) mmol/L Anion Gap 11.7 (5-19) BUN 19 (8-23) mg/dL Creatinine 0.6 (0.5-0.9) mg/dL GFR Calculation 100.0 (90-130) mL/min Glucose 101 (65-115) mg/dL Calculated Osmolal ity 286 (285-295) mOsm/k g Calcium 8.9 (8.5-10.5) mg/dL Magnesium 1.9 (1.7-2.3) mg/dL Total Bilirubin 0.3 (0.15-1.2) mg/dL AST 108 H (0-32) U/L ALT 89 H (0-33) U/L Alkaline Phosphata se 86 (35-105) IU/L Troponin T Baselin e (0-10) ng/L NT-Pro-B Natriuret Pep 1052 H (0-125) pg/mL Total Protein 5.7 L (6.6-8.7) g/dL Albumin 3.5 (3.5-5.2) g/dL Globulin 2.2 (1.3-4.6) g/dL TSH 0.78 (0.27-4.20) uIU/ mL Blood Type Rho(D) Type Antibody Screen Crossmatch 01/09/21 01/09/21 Range/Units 11:51 12:38 WBC (4.0-10.0) 10^3/ uL RBC (4.1-5.3) 10^6/u L Hgb (11.5-15.3) g/dL Hct (37.0-47.0) % MCV (81-99) fl MCH (28.0-34.0) pg MCHC (30.0-36.0) g/dL RDW (12.1-15.1) % Plt Count (130-400) 10^3/c mm MPV (7.4-10.4) fL Neut % (Auto) % Lymph % (Auto) % [place] % (Auto) % Eos % (Auto) % Baso % (Auto) % Neut # (Auto) (1.8-7.7) 10^3/u L Lymph # (Auto) (0.8-4.8) 10^3/u L [place] # (Auto) (0.2-0.9) 10^3/u L Eos # (Auto) (0.0-0.8) 10^3/u L Baso # (Auto) (0.0-0.1) 10^3/u L Nucleated RBC % (a uto) % Nucleated RBCs # /100WBC PT (12.1-14.9) SECO NDS INR (0.8-1.2) Sodium (136-145) mmol/L Potassium (3.5-5.1) mmol/L Chloride (98-107) mmol/L Carbon Dioxide (22-29) mmol/L Anion Gap (5-19) BUN (8-23) mg/dL Creatinine (0.5-0.9) mg/dL GFR Calculation (90-130) mL/min Glucose (65-115) mg/dL Calculated Osmolal ity (285-295) mOsm/k g Calcium (8.5-10.5) mg/dL Magnesium (1.7-2.3) mg/dL Total Bilirubin (0.15-1.2) mg/dL AST (0-32) U/L ALT (0-33) U/L Alkaline Phosphata se (35-105) IU/L Troponin T Baselin e 19 H (0-10) ng/L NT-Pro-B Natriuret Pep (0-125) pg/mL Total Protein (6.6-8.7) g/dL Albumin (3.5-5.2) g/dL Globulin (1.3-4.6) g/dL TSH (0.27-4.20) uIU/ mL Blood Type A Positive Rho(D) Type Positive Antibody Screen Negative Crossmatch See Detail EKG Data^: EKG 1: Attestation: I personally reviewed and interpreted this EKG as follows: EKG interpretation date: 01/09/21 EKG interpretation time: 11:45 Prior EKG tracings: not available for review Interpretation: Twelve-lead EKG shows a regular sinus rhythm at a rate of 86. DC interval 133, QRS duration 82, QTc 430. Right axis deviation. Interpretation: Sinus rhythm. right bundle-branch block Computer generated interpretation: Chest X-Ray 01/09/21 11:17 IMPRESSION: 1. Small bibasal pleural effusions most marked on the left. 2. Pulmonary hyperinflation which may indicate obstructive lung disease. Discharge Plan Discharge Admit Provider: Grace Howard Condition: Stable Coding Level of Care Code ED Premium Service Representative for Phyllis Castillo
--- NOTE | 2021-01-09 11:17 | XR_ITS ---
WS: [id number] Exam: XR chest 1V portable [id number] Date/Time of Exam: 01/09/2021 11:17 AM Reason For Exam: abnormal lung sounds Comparison 12/09/2019. The lungs are hyperinflated. Bibasal pleural effusions are noted most marked on the left. Heart size is within normal limits. The mediastinum is not widened. Calcified granulomas in both lungs. At least one old left-sided rib fractures noted. XR/XR chest 1V portable [id number] IMPRESSION: 1. Small bibasal pleural effusions most marked on the left. 2. Pulmonary hyperinflation which may indicate obstructive lung disease.
--- NOTE | 2021-01-09 11:22 | ECG_ITS ---
[facility] Test Date: 2021-01-09 Pat Name: Tiana Wayne Department: Room: Gender: Female [employer] Officer: : 1955 Requested By: Sergio Bravo Order Number: [id number] Alex MD: Nash Clancy M.D. Measurements Intervals [place] Rate: 86 P: 85 WA: 133 QRS: 100 QRSD: 142 T: 31 QT: 359 QTc: 430 Interpretive Statements SINUS RHYTHM RIGHT BUNDLE BRANCH BLOCK [120+ ms QRS DURATION, UPRIGHT V1, 40+ ms S IN I/aVL/V4/V5/V6] Compared to ECG 05/13/2017 13:34:59 Sinus tachycardia no longer present Electronically Signed On 01-09-2021 17:08:03 CDT by Nash Clancy M.D. [email or web address] general hospitalFalafel [email or web address] medical specialty hospital [id number]
[2021-01-09 12:20] LABS: Basophils % 0.2 %; Eosinophils % 0.1 %; Lymphocytes # 0.7 10^3/uL (0.8-4.8); Lymphocytes % 7.6 %; Mean Corpuscular HGB Conc 26.2 g/dL (30.0-36.0); Mean Corpuscular Hemoglobin 18.2 pg (28.0-34.0); Mean Corpuscular Volume 69.3 fl (81-99); Mean Platelet Volume 9.6 fL (7.4-10.4); Monocytes # 0.5 10^3/uL (0.2-0.9); Monocytes % 6.1 %; Neutrophils # 7.27 10^3/uL (1.8-7.7); Neutrophils % 85.4 %; Nucleated Red Blood Cells # 0.1 /100WBC; Nucleated Red Blood Cells % 0.7 %; Platelet Count 183 10^3/cmm (130-400); Red Blood Count 1.76 10^6/uL (4.1-5.3); Red Cell Distribution Width 19.3 % (12.1-15.1); White Blood Count 8.5 10^3/uL (4.0-10.0)
[2021-01-09 12:22] LABS: Hematocrit 12.2 % (37.0-47.0); Hemoglobin 3.2 g/dL (11.5-15.3)
[2021-01-09 12:26] LABS: Troponin(5th) Baseline 19 ng/L (0-10)
--- NOTE | 2021-01-09 12:33 | PC.NURSE ---
chaperoned a rectal exam for Dr. Bravo at this time.
[2021-01-09 12:36] LABS: INR 1.78 (0.8-1.2)
[2021-01-09 12:37] LABS: Alanine Aminotransferase 89 U/L (0-33); Albumin Level 3.5 g/dL (3.5-5.2); Alkaline Phosphatase 86 IU/L (35-105); Anion Gap 11.7 (5-19); Aspartate Amino Transferase 108 U/L (0-32); Blood Urea Nitrogen 19 mg/dL (8-23); Calcium 8.9 mg/dL (8.5-10.5); Carbon Dioxide 36 mmol/L (22-29); Chloride 94 mmol/L (98-107); Globulin 2.2 g/dL (1.3-4.6); Glucose 101 mg/dL (65-115); Magnesium 1.9 mg/dL (1.7-2.3); NT Pro B Type Natriuretic Pept 1052 pg/mL (0-125); Osmolality Calculated 286 mOsm/kg (285-295); Potassium 4.7 mmol/L (3.5-5.1); Sodium 137 mmol/L (136-145); Thyroid Stimulating Hormone 0.78 uIU/mL (0.27-4.20); Total Bilirubin 0.3 mg/dL (0.15-1.2); Total Protein 5.7 g/dL (6.6-8.7)
[2021-01-09] MEDS: pantoprazole 40 mg SDV 80 MG IVP (14:13)
[2021-01-09 14:48] LABS: Troponin 5 2HR 18.94 ng/L (0-10)
[2021-01-09 15:01] LABS: Troponin 5 2HR Delta -0.06 ABS# (0-10)
[2021-01-09] MEDS: morphine 4 mg/mL SDV 1 mL 2 MG IVP ×2 (15:01→19:30)
[2021-01-09] MEDS: acetaminophen 325 mg Tablet 650 MG PO (15:01)
[2021-01-09] MEDS: sodium chloride 0.9% 100 mL Bag 50 ML IV (15:05)
--- NOTE | 2021-01-09 18:26 | PM.HP ---
Providers/Chief Complaint Admitting Physician: Grace Howard MD Primary Care Provider: Chery Merino MD Chief Complaint: GENERALIZED WEAKNESS History of Present Illness Tiana Wayne is a 65 year old female who carries history of smoking induced COPD Gold class D FEV1 19% on triple nebulized therapy presented to the hospital with chief complaint of lethargy and fatigue. Patient is stating that she has seen Dr. Carlson for her COPD and lung nodules. ABG was obtained which revealed severe anemia she was asked to go to [facility] and get CBC it revealed significantly low hemoglobin of 3.0 and she was asked to go to the ER for further evaluation. Patient is stating that for last 3 to 4 weeks she has been experiencing extreme fatigue, lethargy, she has not noticed any bright bleed per rectum, previous colonoscopy was about 6 years ago never had any history of ulcers or gastritis but endorsing acid reflux. Never had any profuse bleeding episodes in the past, she takes Eliquis for pulmonary embolism. Her last dose was this morning at 4 AM. She has not noticed hematemesis, hemoptysis, nocturnal fever. Patiently she has been noticing excessive sneezing, sinus infection and change of her voice denies previous history of thyroid abnormality. Stating recently ENT did MRI of her head and neck and showed scar of previous tonsillar surgery. She notices black tarry stool intermittently however not with every bowel movement. Diagnostics in the ER revealed hypotension, first blood unit was given in bolus fashion which improved her blood pressure, her heart rate and blood pressure improved in total she received 2 units I have requested tomorrow to make total of 4 no active bleeding evidence however stool guaiac positive Dr. Casarez has evaluated her and planning to do endoscopy and colonoscopy after 48 hours of last Eliquis dose She would not need any reversal agent Review of Systems Const: Reports: chills, body aches and fatigue Eyes: Denies: change in vision ENMT: Reports: throat pain and hoarseness Card: Reports: dyspnea on exertion; Denies: chest pain Resp: Reports: dyspnea GI: Reports: nausea, heartburn and melena; Denies: abdominal pain or vomiting : Denies: flank pain Musc: Denies: neck pain Skin/Breast: Denies: rash Neuro: Denies: headache(s) Psych: Reports: anxiety Endo: Denies: polyuria Abhi/Lymph: Denies: easy bruising All/Imm: Denies: urticaria Medications/Allergies Home Medications Medication Instructions Recorded Confirmed Last Taken Type apixaban 2.5 mg tablet 2.5 mg PO BID 06/22/19 01/09/21 01/09/21 History cholecalciferol (vitamin D3) 25 50 mcg PO DAILY 06/22/19 01/09/21 01/09/21 History mcg (1,000 unit) tablet hydrocodone 5 mg-acetaminophen 325 1 tab PO Q6H PRN 06/22/19 01/09/21 Unknown History mg tablet metoprolol succinate 25 mg capsule 25 mg PO BID each 06/22/19 01/09/21 01/09/21 History sprinkle, ext. release 24 hr nystatin 100,000 unit/gram topical 1 applic TOPICAL BID PRN 09/02/19 01/09/21 Unknown History cream triamcinolone acetonide 0.1 % 1 applic TOPICAL BID PRN 09/02/19 01/09/21 Unknown History topical cream clobetasol 0.05 % topical cream 1 applic TOPICAL BID 04/27/20 01/09/21 Unknown History desonide 0.05 % topical cream 1 applic TOPICAL BID 04/27/20 01/09/21 Unknown History alprazolam 0.25 mg tablet 0.25 mg PO DAILY PRN #14 tab 06/22/20 01/09/21 Unknown Rx hydroxychloroquine 200 mg tablet 200 mg PO DAILY #90 tab 09/18/20 01/09/21 01/09/21 Rx leflunomide 20 mg tablet 20 mg PO DAILY #90 tab 09/18/20 01/09/21 01/08/21 Rx omeprazole 40 mg capsule,delayed 40 mg PO DAILY #30 cap 09/18/20 01/09/21 01/08/21 Rx release prednisone 2.5 mg tablet See Rx Instructions PO DAILY #30 09/18/20 01/09/21 01/09/21 Rx tab albuterol sulfate 90 mcg/actuation 1 puff INHALATION Q6H PRN #8.5 g 10/10/20 01/09/21 Unknown Rx aerosol inhaler potassium chloride 10 mEq 10 meq PO DAILY 10/10/20 01/09/21 01/08/21 History capsule,extended release sertraline 25 mg tablet 25 mg PO DAILY MDD see pharmacy 05/25/21 08/24/21 Unknown History comment furosemide 20 mg tablet 40 mg PO DAILY tab 12/06/20 01/09/21 01/08/21 History fluconazole 100 mg tablet 100 mg PO DAILY #14 tab 12/28/20 01/09/21 01/09/21 Rx fluticasone furoate 200 1 inh INHALATION DAILY #60 ea 12/28/20 01/09/21 Unknown Rx mcg-vilanterol 25 mcg/dose inhalation powder nystatin 100,000 unit/mL oral 5 ml PO Q6H 14 Days #280 ml 12/28/20 01/09/21 Unknown Rx suspension azithromycin 250 mg PO .MON, WEDS, FRI 01/09/21 01/09/21 01/08/21 History diclofenac sodium 2 g TOPICAL QID PRN 01/09/21 01/09/21 Unknown History omega 3-ape-fdd-fish oil [Fish Oil] 1 cap PO DAILY 01/09/21 01/09/21 01/09/21 History Allergies Allergy/AdvReac Type Severity Reaction Status Date / Time dicloxacillin Allergy Severe VOMITING,CRAMPING Verified 01/09/21 10:49 AND SHORTNESS OF BREATH digoxin Allergy unknown Verified 01/09/21 10:49 Iodinated Contrast Media AdvReac Intermediate SHALLOW Verified 01/09/21 10:49 BREATHING PFSH Acute PFSH: Medical History Anemia Carotid artery disease without cerebral infarction Cervical spondylosis with radiculopathy Chilblain lupus Current chronic use of systemic steroids Fibromyalgia High risk medication use Immunization counseling Immunosuppression Osteoporosis Pulmonary nodule, left Raynaud's phenomenon (secondary) Systemic lupus erythematosus (SLE) in adult Vitamin D deficiency Surgical History H/O: H/O: hysterectomy History of tonsillectomy Family History Other CAD (coronary artery disease) Cancer Hypertension Lung disease Denies family history of Rheumatoid arthritis Diabetes Chronic kidney disease (CKD) Systemic lupus erythematosus (SLE) in adult Stroke Social History Smoking and tobacco status: former smoker Quit status (tobacco): has quit using tobacco Year quit tobacco: 2014 - PPD x 25 Years Second hand smoke exposure: Yes Alcohol intake: never Lives independently: Yes Household members: children Marital status: / Current occupational status: disabled History of recent travel: No Current gender identity: Female Vitals/I&O/Wt Last Vital Signs Temp 97.8 F 01/09/21 14:29 Pulse 78 01/09/21 17:34 Resp 21 H 01/09/21 17:34 BP 159/77 01/09/21 17:34 Pulse Ox 100 01/09/21 17:34 01/09/21 01/09/21 01/09/21 06:59 14:59 22:59 Intake Total 250 / 250 350 / 600 Balance 250 / 250 350 / 600 Weight last 48 hrs Weight 95.254 kg Physical Exam Narrative: EXAM NARRATIVE: Patient was seen and examined in the ER bed #1 [facility] at the bedside Patient was in semi-Huggins position Hoarseness of voice noted Blood pressure stable heart rate in 70s Pulse ox 100% on 3 L nasal cannula which is her home baseline S1, S2 sinus rhythm no murmur appreciated Diminished bilateral breath sounds no active wheezing because of lack of air movement She does use respiratory sensory muscles to take deep breaths Abdomen soft Lower extremity no edema Appears anxious No active sign of cyanosis Pallor positive Pale complexion No active GI bleed stool guaiac positive in the ER Data : 01/09/21 11:51 01/09/21 11:51 A&P Assessment and plan (1) Chronic hypercapnic respiratory failure: Status: Acute (2) Exertional chest pain: Status: Acute (3) Anemia: Status: Acute (4) Pulmonary nodule: Status: Acute (5) Chronic respiratory failure with hypoxia: Status: Acute (6) Acute anemia: Status: Acute Additional A&P Information Acute microcytic anemia patient is endorsing melanotic stools Check iron studies with low MCV We will give her total 4 units of PRBC with Lasix after second unit Currently hemodynamically stable however initially she was hypotensive Stool guaiac positive Will need EGD and colonoscopy, requested Dr. Casarez to see her who is planning to do endoscopy 48 hours after last dose of Eliquis, patient is still contemplating whether she would agree for this procedure not considering her severe COPD, she is afraid of intubation and worsening of respiratory distress, she definitely carries the risk of respiratory distress requiring ICU and mechanical ventilator with underlying pulmonary disease, risks and benefits were explained to the patient in front of her granddaughter she would like to think over it overnight and give her final decision tomorrow I will let her eat full liquid diet for now Chronic hypercapnic hypoxic respiratory failure at home she uses 3 L at baseline [id number] pH seems to be compensated There is acute rise in bicarb which would explain acute worsening with anemia To decrease work of breathing she might benefit on BiPAP overnight however considering her anxiety and claustrophobia this might be a challenge For pulmonary nodules she is following up with Dr. Carlson as per my review of records pulmonary nodules have been stable she has extensive smoking history For pulmonary embolism she takes Eliquis last dose was at 4 AM, currently on hold Patient wants a trial of CPR and intubation if she declines but does not want to stay on mechanical ventilator for prolonged period of time Granddaughter was present in the room DVT prophylaxis: SCDs Attestations Medical Necessity Statement*: Will stay in the hospital for more than two midnights Time Spent in Patient Care: Greater than 35 minutes Coding Level of Care Code Acute Labeling Strategist for g Fwd Diagnoses Chronic hypercapnic respiratory failure J96.12 Exertional chest pain R07.9 Anemia D64.9 Pulmonary nodule R91.1 Chronic respiratory failure with hypoxia J96.11 Acute anemia D64.9
[2021-01-09 20:33] LABS: Ferritin 20 ng/mL (15-150); Iron 12 ug/dL (37-145); Percent Saturation 2.9 % (20-50); Total Iron Binding Capacity 402 mcg/dl; Unsaturated Iron Binding 390 ug/dL (112-347)
[2021-01-09] MEDS: HYDROmorphone 1 mg/mL INJ 1 mL 0.4 MG IVP (20:46)
[2021-01-09] MEDS: HYDROcodone-acetaminophen 5-325 mg Tablet 1 TAB PO (22:24)
[2021-01-09 23:48] LABS: Add Urine Microscopic? NO; Charge for UA Resulting for Rev
[2021-01-09 23:53] LABS: Specific Gravity, Urine 1.015 (1.005-1.030); Urine Appearance Clear (CLEAR); Urine Color Straw (Yellow); pH Urine 5 (5-7)
[2021-01-09 23:54] LABS: Bilirubin Urine Neg (Negative); Blood Urine Neg (Negative); Glucose Urine UA Norm (Normal); Ketones Urine 1+ (Negative); Leukocyte Esterase Urine Negative (Negative); Nitrate Urine Negative (Negative); Protein Urine Neg (Negative); Urobilinogen Urine Norm (Negative)
[2021-01-10] VITALS (18 sets, daily range): BP systolic 123–152; BP diastolic 65–84; PULSE 72–109; RESP 16–24; TEMP 36.4–36.8; O2SAT 93–99; BMI 21.2
[2021-01-10] MEDS: ALPRAZolam 0.5 mg Tablet 0.25 MG PO (00:32)
--- NOTE | 2021-01-10 01:04 | PC.NURSE ---
ADMIT NOTE Pt was received to floor from ER at 2340. Daughter with pt and will be staying rest of the night. Wants to talk with Dr in the am and says pt has problems with anxiety. Pt is alert and oriented. Reports weakness, fatigue, dizziness and generally not feeling well. Says normally SOB but has been worse. On O2 at 3l per NC and is pts baseline. 3rd unit of PRBC's infusing on arrival to floor and has since finished. Preparing to start 4th unit. Only c/o pain is a headache and received pain medicine in the ER. Was up to [facility] and urinated well. RT was in and talked with pt about wearing BIPAP. Pt says she does not like it and doesn't wear it at night because she cannot sleep with it. Also c/o claustrophobia
[2021-01-10] MEDS: pantoprazole 40 mg SDV IVP ×2 (01:05→11:46)
[2021-01-10] MEDS: HYDROmorphone 1 mg/mL INJ 1 mL 0.4 MG IVP ×2 (02:55→12:29)
[2021-01-10] MEDS: fixodent 39 gm Tube 1 APPLIC DENTAL (03:52)
[2021-01-10] MEDS: sodium chloride 0.9% (100 ml) 100 ML 125 ML (04:21)
[2021-01-10 05:04] LABS: Basophils # 0.1 10^3/uL (0.0-0.1); Basophils % 0.8 %; Eosinophils # 0.1 10^3/uL (0.0-0.8); Eosinophils % 0.4 %; Hematocrit 37.7 % (37.0-47.0); Hemoglobin 12.1 g/dL (11.5-15.3); Lymphocytes # 0.8 10^3/uL (0.8-4.8); Mean Corpuscular HGB Conc 32.1 g/dL (30.0-36.0); Mean Corpuscular Hemoglobin 26.2 pg (28.0-34.0); Mean Corpuscular Volume 81.8 fl (81-99); Mean Platelet Volume 9.4 fL (7.4-10.4); Monocytes # 1.3 10^3/uL (0.2-0.9); Monocytes % 10.9 %; Neutrophils # 9.37 10^3/uL (1.8-7.7); Neutrophils % 80.3 %; Nucleated Red Blood Cells # 0.1 /100WBC; Nucleated Red Blood Cells % 0.8 %; Platelet Count 104 10^3/cmm (130-400); Red Blood Count 4.61 10^6/uL (4.1-5.3); White Blood Count 11.7 10^3/uL (4.0-10.0)
[2021-01-10 05:21] LABS: Blood Urea Nitrogen 18 mg/dL (8-23); Calcium 8.7 mg/dL (8.5-10.5); Carbon Dioxide 35 mmol/L (22-29); Chloride 96 mmol/L (98-107); Glucose 109 mg/dL (65-115); Osmolality Calculated 288 mOsm/kg (285-295); Sodium 138 mmol/L (136-145)
--- NOTE | 2021-01-10 06:30 | PC.NURSE ---
SHIFT UPDATE Has rested well since admission. Received 4th unit of PRBC's and lg well. H/H up to 12.1/37.7 this am. Received dose of IV Dilaudid X1 for c/o pain & headache.
--- NOTE | 2021-01-10 07:20 | PC.NURSE ---
DAUGHTER CALLED Called pts mary Mcfarlane this am to give update of pts night and to let her know that Dr Casarez came in to see pt already this morning. He will come back after clinic today to discuss procedures with them. He talked to pt who does not want to decide anything until talks with family.
[2021-01-10] MEDS: fluconazole 100 mg Tablet PO (09:18)
[2021-01-10] MEDS: hydroxychloroquine 200 mg Tablet PO (09:18)
[2021-01-10] MEDS: HYDROcodone-acetaminophen 5-325 mg Tablet 1 TAB PO ×2 (09:19→20:09)
[2021-01-10] MEDS: metoprolol succinate ER (24 HR) 25 mg Tablet PO (09:20)
[2021-01-10] MEDS: potassium chloride ER 10 mEq Tablet PO (09:20)
[2021-01-10] MEDS: FUROsemide 40 mg Tablet PO (09:20)
--- NOTE | 2021-01-10 09:28 | P.CONIM_ITS ---
Providers/Reason For Consult Consulting Physician/Specialty*: Endoscopist Reason for Consult*: GI bleed Attending Physician: Grace Howard MD Primary Care Provider: Chery Merino MD History of Present Illness History of Present Illness Tiana Wayne is a 65 year old female who presented to the emergency room after she was found to have hemoglobin of 3.0. The patient was not aware of any source of bleeding. She had not noticed any skyler blood in her stool. She has noticed some darker stools that might be tarry. In the ER she was noted to have Hemoccult positive stools. She is on Eliquis. Her last dose was yesterday morning. She believes she is on it for blood clots. She was also on omeprazole for gastric protection. Meds/Allergies Home Medications and Allergies Home Medications Medication Instructions Recorded Confirmed Last Taken Type apixaban 2.5 mg tablet 2.5 mg PO BID 06/22/19 01/09/21 01/09/21 History cholecalciferol (vitamin D3) 25 50 mcg PO DAILY 06/22/19 01/09/21 01/09/21 History mcg (1,000 unit) tablet hydrocodone 5 mg-acetaminophen 325 1 tab PO Q6H PRN 06/22/19 01/09/21 Unknown History mg tablet metoprolol succinate 25 mg capsule 25 mg PO BID each 06/22/19 01/09/21 01/09/21 History sprinkle, ext. release 24 hr nystatin 100,000 unit/gram topical 1 applic TOPICAL BID PRN 09/02/19 01/09/21 Unknown History cream triamcinolone acetonide 0.1 % 1 applic TOPICAL BID PRN 09/02/19 01/09/21 Unknown History topical cream clobetasol 0.05 % topical cream 1 applic TOPICAL BID 04/27/20 01/09/21 Unknown History desonide 0.05 % topical cream 1 applic TOPICAL BID 04/27/20 01/09/21 Unknown History alprazolam 0.25 mg tablet 0.25 mg PO DAILY PRN #14 tab 06/22/20 01/09/21 Unknown Rx hydroxychloroquine 200 mg tablet 200 mg PO DAILY #90 tab 09/18/20 01/09/21 01/09/21 Rx leflunomide 20 mg tablet 20 mg PO DAILY #90 tab 09/18/20 01/09/21 01/08/21 Rx omeprazole 40 mg capsule,delayed 40 mg PO DAILY #30 cap 09/18/20 01/09/21 01/08/21 Rx release prednisone 2.5 mg tablet See Rx Instructions PO DAILY #30 09/18/20 01/09/21 01/09/21 Rx tab albuterol sulfate 90 mcg/actuation 1 puff INHALATION Q6H PRN #8.5 g 10/10/20 01/09/21 Unknown Rx aerosol inhaler potassium chloride 10 mEq 10 meq PO DAILY 10/10/20 01/09/21 01/08/21 History capsule,extended release sertraline 25 mg tablet 25 mg PO DAILY MDD see pharmacy 10/10/20 01/09/21 Unknown History comment furosemide 20 mg tablet 40 mg PO DAILY tab 12/06/20 01/09/21 01/08/21 History fluconazole 100 mg tablet 100 mg PO DAILY #14 tab 12/28/20 01/09/21 01/09/21 Rx fluticasone furoate 200 1 inh INHALATION DAILY #60 ea 12/28/20 01/09/21 Unknown Rx mcg-vilanterol 25 mcg/dose inhalation powder nystatin 100,000 unit/mL oral 5 ml PO Q6H 14 Days #280 ml 12/28/20 01/09/21 Unknown Rx suspension azithromycin 250 mg PO .MON, WEDS, FRI 01/09/21 01/09/21 01/08/21 History diclofenac sodium 2 g TOPICAL QID PRN 01/09/21 01/09/21 Unknown History omega 1-hcw-kxg-fish oil [Fish Oil] 1 cap PO DAILY 01/09/21 01/09/21 01/09/21 History Allergies Allergy/AdvReac Type Severity Reaction Status Date / Time dicloxacillin Allergy Severe VOMITING,CRAMPING Verified 01/09/21 10:49 AND SHORTNESS OF BREATH ciprofloxacin Allergy Unknown Verified 01/10/21 01:20 digoxin Allergy unknown Verified 01/09/21 10:49 Iodinated Contrast Media AdvReac Intermediate SHALLOW Verified 01/09/21 10:49 BREATHING Current Medications Current Medications Generic Name Dose Route Start Last Admin Trade Name Freq PRN Reason Stop Dose Admin Hydrocodone Bitart/Acetaminophen 1 tab 01/09/21 19:58 01/10/21 09:19 Hydrocodone-Acetaminophen 5-325 Mg Tablet PO 1 tab Q6H PRN Administration Pain Alprazolam 0.25 mg 01/09/21 20:40 01/10/21 00:32 Alprazolam 0.5 Mg Tablet PO 0.25 mg DAILY PRN Administration anxiety Denture Adhesive 1 applic 01/10/21 00:56 01/10/21 03:52 Fixodent 39 Gm Tube DENTAL 1 tube PRN PRN Administration denture adhesive Fluconazole 100 mg 01/10/21 09:00 01/10/21 09:18 Fluconazole 100 Mg Tablet PO 100 mg DAILY RADHA Administration Furosemide 40 mg 01/10/21 09:00 01/10/21 09:20 Furosemide 40 Mg Tablet PO 40 mg DAILY RADHA Administration Hydromorphone HCl 0.4 mg 01/09/21 19:58 01/10/21 02:55 Hydromorphone 1 Mg/Ml Inj 1 Ml IVP 0.4 mg Q4H PRN Administration pain Hydroxychloroquine Sulfate 200 mg 01/10/21 09:00 01/10/21 09:18 Hydroxychloroquine 200 Mg Tablet PO 200 mg DAILY RADHA Administration Metoprolol Succinate 25 mg 01/10/21 09:00 01/10/21 09:20 Metoprolol Succinate Er (24 Hr) 25 Mg Tablet PO 25 mg DAILY RADHA Administration Nystatin 500,000 unit 01/09/21 22:00 01/10/21 09:23 Nystatin 100,000 Unit/Ml Udc 5 Ml PO Not Given Q6H RADHA Pantoprazole Sodium 40 mg 01/09/21 19:58 01/10/21 01:05 Pantoprazole 40 Mg Sdv IVP 40 mg Q12H RADHA Administration Potassium Chloride 10 meq 01/10/21 09:00 01/10/21 09:20 Potassium Chloride Er 10 Meq Tablet PO 10 meq DAILY RADHA Administration PFSH Acute PFSH: Medical History Anemia Carotid artery disease without cerebral infarction Cervical spondylosis with radiculopathy Chilblain lupus Current chronic use of systemic steroids Fibromyalgia High risk medication use Immunization counseling Immunosuppression Osteoporosis Pulmonary nodule, left Raynaud's phenomenon (secondary) Systemic lupus erythematosus (SLE) in adult Vitamin D deficiency Surgical History H/O: H/O: hysterectomy History of tonsillectomy Family History Other CAD (coronary artery disease) Cancer Hypertension Lung disease Denies family history of Rheumatoid arthritis Diabetes Chronic kidney disease (CKD) Systemic lupus erythematosus (SLE) in adult Stroke Social History Smoking and tobacco status: former smoker Quit status (tobacco): has quit using tobacco Year quit tobacco: 2014 PPD x 25 Years Second hand smoke exposure: Yes Alcohol intake: never Lives independently: Yes Household members: children Marital status: / Current occupational status: disabled History of recent travel: No Current gender identity: Female Vitals/I&O/Wt Last Vital Signs Temp 97.6 F 01/10/21 09:00 Pulse 109 H 01/10/21 09:13 Resp 20 H 01/10/21 09:13 BP 139/73 01/10/21 09:00 Pulse Ox 96 01/10/21 09:13 01/09/21 01/10/21 01/10/21 22:59 06:59 14:59 Intake Total 350 / 600 820 / 1420 Output Total 500 / 500 Balance 350 / 600 320 / 920 Weight last 48 hrs Weight 115 lb 12.8 oz Weight 210 lb Physical Exam Const: COMMON NORMALS: no acute distress and patient oriented x3 GENERAL APPEARANCE: cooperative, comfortable, well developed and frail appearing HENMT: COMMON NORMALS: normocephalic and moist oral mucous membranes HEAD & SCALP: normocephalic Chest: COMMONS NORMALS: normal inspection of the chest and normal palpation of entire chest wall Resp: COMMON NORMALS: normal respiratory effort EFFORT & INSPECTION: Yes symmetric chest movement AUSCULTATION: diminished lung sounds Cardio: COMMON NORMALS: regular rate, regular rhythm, No gallops present (Cardio), No murmurs present (Cardio) and No rub (Cardio) RATE: regular rate RHYTHM: regular rhythm GI: COMMON NORMALS: Normal to inspection, nondistended, normoactive bowel sounds present PALPATION: Yes Tenderness to palpation present (GI) Details: other (Epigastric area) Extremity: COMMON NORMALS: normal to inspection Neuro: COMMON NORMALS: patient oriented x3 and no focal motor deficits Skin: COMMON NORMALS: no rashes or lesions noted GENERAL SKIN EXAM: no rashes or lesions noted A&P Assessment and plan (1) Anemia: Due to the severe anemia, the occult stool, and her anticoagulation, she would benefit from an EGD and colonoscopy. I have discussed performing both an EGD and a colonoscopy with the patient 3 times now, and she seems concerned about the prep as well as sedation. She had been unwilling to make a decision, and we talked about the benefits of each procedure and we have elected to move forward with an EGD and not do the colonoscopy at this time. While I did let her know that I felt it was best if she had both procedures, I felt that given her functional status and the fact that a colonoscopy would be a lower yield procedure it was reasonable to not do it during this hospitalization. Once again, we discussed the risks of the procedure including the risk of bleeding, perforation, and sedation. We also discussed her concern about being intubated. She did agree that if we did need to intubate her during or directly after the procedure for some reason she would be okay with that on a short-term basis and that her family could make a decision about exactly when we would extubate her if that were necessary. Status: Acute (2) Chronic anticoagulation: Status: Acute (3) Occult blood positive stool: Status: Acute Coding Level of Care Code Acute Car Repair Supervisor for [facility] Fwd Diagnoses Anemia D64.9 Chronic anticoagulation Z79.01 Occult blood positive stool R19.5
[2021-01-10] MEDS: LORazepam 2 mg/mL INJ 1 mL 0.5 MG IVP (10:29)
--- NOTE | 2021-01-10 14:17 | PM.PN ---
Subjective Subjective: Interval history: Patient was seen and examined this morning, daughter was at the bedside Patient is stating that she is afraid of ending up on a mechanical ventilator after EGD however she might opt for EGD and colonoscopy during this visit and family is also requesting her to get everything done during this hospitalization Today she is complaining of midepigastric pain which she describing a nagging sensation happens whenever she tries to eat and this pain has been going on for last few months We did discuss if she goes home with this pain and if there is any gastric ulcer there is also a risk of perforation yes there is a risk of respiratory failure requiring mechanical ventilation which she has to consider if she gives consent for EGD and colonoscopy all the risks and benefits were explained to the patient regarding endoscopy, holding Eliquis, possibility of gastric ulcer, perforation, complications, bleeding to , stroke and demise Both patient and family agreed and their questions were answered to their satisfaction Patient is claustrophobic and does not want to use BiPAP overnight, very anxious she was given Ativan this morning as well, she wants her family to stay with her as well Vitals/I&O/Wt Last Vital Signs Temp 97.9 F 01/10/21 12:00 Pulse 96 01/10/21 12:00 Resp 16 01/10/21 12:29 BP 151/71 01/10/21 12:00 Pulse Ox 95 01/10/21 12:00 01/09/21 01/10/21 01/10/21 22:59 06:59 14:59 Intake Total 350 / 600 820 / 1420 460 / 460 Output Total 500 / 500 400 / 400 Balance 350 / 600 320 / 920 60 / 60 Weight last 48 hrs Weight 52.526 kg Weight 95.254 kg Physical Exam Narrative: EXAM NARRATIVE: Patient was in semi-Huggins position Saturating well on 3 L nasal cannula She could not use BiPAP overnight S1, S2 Bilateral breath sounds diminished no active wheezing Abdomen soft mild tenderness on deep palpation midepigastric region no signs of peritonitis Lower extremity no edema Is tolerating liquid diet Awake alert oriented x3 Very anxious Data : 01/10/21 04:53 01/10/21 04:53 A&P Assessment and plan (1) Occult blood positive stool: Status: Acute (2) Chronic anticoagulation: Status: Acute (3) Acute anemia: Status: Acute (4) Chronic respiratory failure with hypoxia: Status: Acute (5) Chronic hypercapnic respiratory failure: Status: Acute (6) Anemia: Status: Acute (7) Systemic lupus erythematosus (SLE) in adult: Status: Acute (8) Raynaud's phenomenon (secondary): Status: Acute Additional A&P Information Acute microcytic anemia Started iron supplementation Status post 4 unit PRBC today hemoglobin 12 no recurrence of melanotic stools Patient complaining of midepigastric tenderness Stool guaiac positive Last Eliquis dose 4 AM yesterday, Dr. Casarez planning for EGD and colonoscopy at 130 on 01/11 patient might opt for it discussed in detail with the patient and her family, questions were answered to their satisfaction will make her n.p.o. after midnight Chronic hypoxic hypercapnic restaurant failure currently doing well on 3 L cannula Overnight could not use bicarb, I will use CPAP instead Patient is claustrophobic and very anxious Hoarseness of voice, pulmonary nodules with concern for increased activity seen on PET scan concern for malignancy, was deemed not a suitable candidate to undergo biopsy because of her COPD Patient does want a trial of chest compressions or intubation but does not want to prolong resuscitative measures beyond 10 minutes in case she goes into cardiac arrest, nor wants to stay on mechanical ventilator for prolonged period of time She will be treated as full code, goals of care discussed today in front of her daughter and son Full liquid diet, n.p.o. after midnight DVT prophylaxis SCD Hold Ashley Attestations Medical Necessity Statement*: Anticipating endoscopy tomorrow Time Spent in Patient Care: 16 - 35 minutes Coding Level of Care Code Acute Mutual Fund Sales Agent for [employer] Fwd Diagnoses Occult blood positive stool R19.5 Chronic anticoagulation Z79.01 Acute anemia D64.9 Chronic respiratory failure with hypoxia J96.11 Chronic hypercapnic respiratory failure J96.12 Anemia D64.9 Systemic lupus erythematosus (SLE) in adult M32.9 Raynaud's phenomenon (secondary) I73.00
--- NOTE | 2021-01-10 16:52 | PC.RESP ---
PULMONARY REHAB INFORMATION SENT TO PATIENT.
[2021-01-10] MEDS: ipratropium-albuterol 3 mL Neb INHALATION (20:31)
[2021-01-10] MEDS: sodium chlor 0.45% +KCl 20 mEq 20 MEQ/1,000 ML BAG 100 MEQ IV (23:34)
[2021-01-11] VITALS (12 sets, daily range): BP systolic 119–162; BP diastolic 66–87; PULSE 81–99; RESP 14–22; TEMP 36.2–37; O2SAT 95–100
[2021-01-11] MEDS: ALPRAZolam 0.5 mg Tablet 0.25 MG PO ×3 (00:47→20:49)
[2021-01-11 04:02] LABS: Basophils # 0.1 10^3/uL (0.0-0.1); Eosinophils # 0.1 10^3/uL (0.0-0.8); Eosinophils % 0.5 %; Hematocrit 36.6 % (37.0-47.0); Hemoglobin 11.6 g/dL (11.5-15.3); Lymphocytes # 0.7 10^3/uL (0.8-4.8); Mean Corpuscular HGB Conc 31.7 g/dL (30.0-36.0); Mean Corpuscular Hemoglobin 26.2 pg (28.0-34.0); Mean Corpuscular Volume 82.6 fl (81-99); Mean Platelet Volume 9.5 fL (7.4-10.4); Monocytes # 1.4 10^3/uL (0.2-0.9); Monocytes % 15.2 %; Neutrophils # 7.09 10^3/uL (1.8-7.7); Neutrophils % 75.9 %; Nucleated Red Blood Cells % 0.3 %; Platelet Count 109 10^3/cmm (130-400); Red Blood Count 4.43 10^6/uL (4.1-5.3); Red Cell Distribution Width 18.7 % (12.1-15.1); White Blood Count 9.3 10^3/uL (4.0-10.0)
[2021-01-11 04:30] LABS: Anion Gap 6.6 (5-19); Blood Urea Nitrogen 10 mg/dL (8-23); Calcium 8.5 mg/dL (8.5-10.5); Chloride 93 mmol/L (98-107); Glomerular Filtration Rate 123.4 mL/min (90-130); Glucose 71 mg/dL (65-115); Osmolality Calculated 284 mOsm/kg (285-295); Potassium 3.6 mmol/L (3.5-5.1); Sodium 138 mmol/L (136-145)
[2021-01-11 04:51] LABS: Carbon Dioxide 42 mmol/L (22-29)
[2021-01-11] MEDS: HYDROcodone-acetaminophen 5-325 mg Tablet 1 TAB PO ×3 (06:10→22:02)
[2021-01-11] MEDS: metoprolol succinate ER (24 HR) 25 mg Tablet PO (09:29)
[2021-01-11] MEDS: sodium chlor 0.45% +KCl 20 mEq 20 MEQ/1,000 ML BAG 100 MEQ IV ×2 (09:30→22:03)
[2021-01-11] MEDS: lanolin oint 7 gm 1 APPLIC TOPICAL (09:37)
[2021-01-11] MEDS: sodium chloride 0.9% 1,000 ML 30 ML IV (12:55)
--- NOTE | 2021-01-11 12:55 | ANES.PREANE2 ---
Pre-Anesthetic Assessment Pre-Anesthetic Assessment: Height/Weight: Height 1.57 m Weight 52.526 kg Temp Pulse Resp BP Pulse Ox 97.7 F 94 22 H 155/87 96 01/11/21 12:46 01/11/21 12:46 01/11/21 12:46 01/11/21 12:46 01/11/21 12:46 Proposed Procedure: Operation Date: 01/11/21 13:30 Proposed Procedures p EGD(Not Applicable) - Jameel Casarez MD Was Beta Shelia taken within 24 hours: Yes Was Clonidine taken within 24 hours: N/A Last intake: Intake Last Liquid Date 01/11/21 Last Liquid Time 00:00 Last Solid Date 01/11/21 Last Solid Time 00:00 Social: Social History: Tobacco and No alcohol Exam: Pre-Anes Outpt Exam: alert, oriented x 3 and regular rate & rhythm Airway: Submandibular: WNL Cervical ROM: WNL MP: 2 Dentition: False Pulmonary: Pulmonary: COPD Comments: Home O2 3L CV/HEM: CV/HEM: Anemia and PVD (anticoagulation) GI: GI: GERD Musc/skel: Comments: SLE, chronic steroids Neuropsych: Neuropsych: Anxiety and Depression Anesthetic Plan: ASA status: 3 Anesthesia: MAC Risk of > 500 ml blood loss (7ml/kg in children): No Meds/Allergies Current Medications: Current Medications Generic Name Dose Route Start Last Admin Trade Name Freq PRN Reason Stop Dose Admin Hydrocodone Bitart /Acetaminophen 1 tab 01/09/21 19:58 01/11/21 06:10 Hydrocodone-Acet aminophen 5-325 Mg Tablet PO 1 tab Q6H PRN Administration Pain Albuterol/Ipratrop ium 3 ml 01/09/21 19:58 01/10/21 20:31 Ipratropium-Albu terol 3 Ml Neb INHALATION 3 ml Q4H PRN Administration SHORTNESS OF ANA TH Alprazolam 0.25 mg 01/10/21 14:28 01/11/21 09:43 Alprazolam 0.5 M g Tablet PO 0.25 mg Q6H PRN Administration anxiety Denture Adhesive 1 applic 01/10/21 00:56 01/10/21 03:52 Fixodent 39 Gm T ube DENTAL 1 tube PRN PRN Administration denture adhesive Fluconazole 100 mg 01/10/21 09:00 01/11/21 09:25 Fluconazole 100 Mg Tablet PO Not Given DAILY RADHA Furosemide 40 mg 01/10/21 09:00 01/10/21 09:20 Furosemide 40 Mg Tablet PO 40 mg DAILY RADHA Administration Hydromorphone HCl 0.4 mg 01/09/21 19:58 01/10/21 12:29 Hydromorphone 1 Mg/Ml Inj 1 Ml IVP 0.4 mg Q4H PRN Administration pain Hydroxychloroquine Sulfate 200 mg 01/10/21 09:00 01/11/21 09:25 Hydroxychloroqui ne 200 Mg Tablet PO Not Given DAILY RADHA Potassium Chloride /Sodium Chloride 20 meq in 1,000 m ls @ 100 mls/hr 01/10/21 23:00 01/11/21 09:30 Sodium Chlor 0.4 5% +Kcl 20 Meq IV 100 mls/hr .Q10H RADHA Administration Lanolin 1 applic 01/10/21 00:57 01/11/21 09:37 Lanolin Oint 7 G m TOPICAL 1 applic PRN PRN Administration DRYNESS Metoprolol Succina te 25 mg 01/10/21 09:00 01/11/21 09:29 Metoprolol Succi sourav Er (24 Hr) 25 Mg Tablet PO 25 mg DAILY RADHA Administration Nystatin 500,000 unit 01/09/21 22:00 01/11/21 09:25 Nystatin 100,000 Unit/Ml Udc 5 Ml PO Not Given Q6H RADHA Pantoprazole Sodiu m 40 mg 01/09/21 19:58 01/11/21 12:47 Pantoprazole 40 Mg Sdv IVP Not Given Q12H RADHA Potassium Chloride 10 meq 01/10/21 09:00 01/10/21 09:20 Potassium Chlori de Er 10 Meq Table t PO 10 meq DAILY RADHA Administration PFSH Anesthesia PFSH: Medical History Anemia Carotid artery disease without cerebral infarction Cervical spondylosis with radiculopathy Chilblain lupus Current chronic use of systemic steroids Fibromyalgia High risk medication use Immunization counseling Immunosuppression Osteoporosis Pulmonary nodule, left Raynaud's phenomenon (secondary) Systemic lupus erythematosus (SLE) in adult Vitamin D deficiency Surgical History H/O: H/O: hysterectomy History of tonsillectomy Family History Other CAD (coronary artery disease) Cancer Hypertension Lung disease Denies family history of Rheumatoid arthritis Diabetes Chronic kidney disease (CKD) Systemic lupus erythematosus (SLE) in adult Stroke Social History Smoking and tobacco status: former smoker Quit status (tobacco): has quit using tobacco Year quit tobacco: 2014 PPD x 25 Years Second hand smoke exposure: Yes Alcohol intake: never Lives independently: Yes Household members: children Marital status: / Current occupational status: disabled History of recent travel: No Current gender identity: Female Data Anesthesia CBC & Chem 7: 01/11/21 03:12 01/11/21 03:12 Other Labs: Laboratory Results - last 48 hr 01/09/21 01/09/21 01/09/21 12:38 14:04 14:04 WBC RBC Hgb Hct MCV MCH MCHC RDW Plt Count MPV Neut % (Auto) Lymph % (Auto) [place] % (Auto) Eos % (Auto) Baso % (Auto) Neut # (Auto) Lymph # (Auto) [place] # (Auto) Eos # (Auto) Baso # (Auto) Nucleated RBC % (auto) Nucleated RBCs # Sodium Potassium Chloride Carbon Dioxide Anion Gap BUN Creatinine GFR Calculation Glucose Calculated Osmolality Calcium Iron 12 L TIBC 402 % Saturation 2.9 L Unsat Iron Binding 390 H Ferritin 20 Troponin T 120 Minute 18.94 H Delta Troponin T -0.06 L Urine Color Urine Appearance Urine pH Ur Specific [place] Urine Protein Urine Glucose (UA) Urine Ketones Urine Blood Urine Nitrate Urine Bilirubin Urine Urobilinogen Ur Leukocyte Esterase Blood Type A Positive Rho(D) Type Positive Antibody Screen Negative Crossmatch See Detail 01/09/21 01/10/21 01/10/21 23:15 04:53 04:53 WBC 11.7 H RBC 4.61 Hgb 12.1 D Hct 37.7 D MCV 81.8 D MCH 26.2 L D MCHC 32.1 D RDW 18.0 H Plt Count 104 L D MPV 9.4 Neut % (Auto) 80.3 Lymph % (Auto) 7.0 [place] % (Auto) 10.9 Eos % (Auto) 0.4 Baso % (Auto) 0.8 Neut # (Auto) 9.37 H Lymph # (Auto) 0.8 [place] # (Auto) 1.3 H Eos # (Auto) 0.1 Baso # (Auto) 0.1 Nucleated RBC % (auto) 0.8 Nucleated RBCs # 0.1 Sodium 138 Potassium 4.0 Chloride 96 L Carbon Dioxide 35 H Anion Gap 11.0 BUN 18 Creatinine 0.6 GFR Calculation 100.0 Glucose 109 Calculated Osmolality 288 Calcium 8.7 Iron TIBC % Saturation Unsat Iron Binding Ferritin Troponin T 120 Minute Delta Troponin T Urine Color Straw Urine Appearance Clear Urine pH 5 Ur Specific [place] 1.015 Urine Protein Neg Urine Glucose (UA) Norm Urine Ketones 1+ H Urine Blood Neg Urine Nitrate Negative Urine Bilirubin Neg Urine Urobilinogen Norm Ur Leukocyte Esterase Negative Blood Type Rho(D) Type Antibody Screen Crossmatch 01/11/21 01/11/21 03:12 03:12 WBC 9.3 RBC 4.43 Hgb 11.6 Hct 36.6 L MCV 82.6 MCH 26.2 L MCHC 31.7 RDW 18.7 H Plt Count 109 L MPV 9.5 Neut % (Auto) 75.9 Lymph % (Auto) 7.0 [place] % (Auto) 15.2 Eos % (Auto) 0.5 Baso % (Auto) 1.0 Neut # (Auto) 7.09 Lymph # (Auto) 0.7 L [place] # (Auto) 1.4 H Eos # (Auto) 0.1 Baso # (Auto) 0.1 Nucleated RBC % (auto) 0.3 Nucleated RBCs # 0.0 Sodium 138 Potassium 3.6 Chloride 93 L Carbon Dioxide 42 H* Anion Gap 6.6 BUN 10 Creatinine 0.5 GFR Calculation 123.4 Glucose 71 Calculated Osmolality 284 L Calcium 8.5 Iron TIBC % Saturation Unsat Iron Binding Ferritin Troponin T 120 Minute Delta Troponin T Urine Color Urine Appearance Urine pH Ur Specific [place] Urine Protein Urine Glucose (UA) Urine Ketones Urine Blood Urine Nitrate Urine Bilirubin Urine Urobilinogen Ur Leukocyte Esterase Blood Type Rho(D) Type Antibody Screen Crossmatch Cardiac Studies: No Data to Display
--- NOTE | 2021-01-11 13:44 | P.PN_ITS ---
Subjective Subjective: Interval history: No overnight events no recurrence of bleed, patient is scheduled for EGD today Vitals/I&O/Wt Last Vital Signs Temp 97.1 F L 01/11/21 13:40 Pulse 84 01/11/21 13:40 Resp 16 01/11/21 13:40 BP 119/67 01/11/21 13:40 Pulse Ox 100 01/11/21 13:40 01/10/21 01/11/21 01/11/21 22:59 06:59 14:59 Intake Total 360 / 820 400 / 1220 993.333 / 993.333 Output Total 700 / 1100 Balance 360 / 420 -300 / 120 993.333 / 993.333 Weight last 48 hrs Weight 52.526 kg Physical Exam Narrative: EXAM NARRATIVE: Patient was in semi-Huggins position Saturating well on 3 to nasal cannula S1, S2 No active stridor or wheezing diminished airflow bilaterally Still complaining of midepigastric pain and tenderness on deep palpation Lower extremity no edema Awake alert oriented x3 GCS 15 Data : 01/11/21 03:12 01/11/21 03:12 A&P Assessment and plan (1) Occult blood positive stool: Status: Acute (2) Chronic anticoagulation: Status: Acute (3) Acute anemia: Status: Acute (4) Chronic hypercapnic respiratory failure: Status: Acute (5) Pulmonary nodule: Status: Acute (6) Chronic respiratory failure with hypoxia: Status: Acute Additional A&P Information Acute microcytic anemia Patient is awaiting EGD today Status post 4 units PRBC Hemoglobin stable, she is hemodynamically stable as well no recurrence of bleed Chronic hypoxic hypercapnic restaurant failure currently doing well on treatment with, patient could not use CPAP as well she is claustrophobic Patient is full code DVT prophylaxis: SCDs Holding Eliquis Attestations 2 Medical Necessity Statement*: EGD today Time Spent in Patient Care: less than 15 minutes Coding Level of Care Code Acute Liquid Fertilizer Servicer for Chg Fwd Diagnoses Occult blood positive stool R19.5 Chronic anticoagulation Z79.01 Acute anemia D64.9 Chronic hypercapnic respiratory failure J96.12 Pulmonary nodule R91.1 Chronic respiratory failure with hypoxia J96.11
[2021-01-11 14:42] LABS: Glucose Point of Care 93 mg/dL (70-110)
--- NOTE | 2021-01-11 16:17 | ANE.PACU2 ---
Inpatient post-anesthesia follow up: Airway intact: Yes Vital signs: Temperature 97.1 F Pulse Rate [Apical ] 89 Pulse Rate 83 Respiratory Rate 16 Blood Pressure [Ri ght Arm] 104/52 Blood Pressure 142/71 Pulse Oximetry 100 Oxygen Delivery Me thod Nasal Cannula Oxygen Flow Rate 3 Fraction of Inspir ed Oxygen Hydration adequate: Yes Nausea and vomiting: No Pain level: 1 Mental status: Baseline
[2021-01-11] MEDS: sucralfate 1 gm Tablet PO ×2 (18:07→20:42)
[2021-01-11] MEDS: nystatin 100,000 unit/mL UDC 5 mL 500000 UNIT PO (18:07)
[2021-01-11] MEDS: ipratropium-albuterol 3 mL Neb INHALATION (21:26)
[2021-01-11 21:42] LABS: ABG PH Result 7.34 (7.35-7.45); Arterial Blood Gas Hematocrit 39.5 % (37-47); Base Excess ABG 11.9 mmol/L (-2.0-2.0); Blood Gas Allen Test Pos; Blood Gas Operator Identificat HARKR; Blood Gas Sample Site Radial, left; Blood Gas Sample Type Arterial; Oxygen Device NC; PO2 ABG 85.7 mmHg (80.0-100.0)
[2021-01-12] VITALS (18 sets, daily range): BP systolic 131–174; BP diastolic 65–82; PULSE 89–106; RESP 16–20; TEMP 36.3–36.6; O2SAT 93–99
[2021-01-12] MEDS: pantoprazole 40 mg SDV IVP (01:37)
[2021-01-12 03:12] LABS: Basophils # 0.1 10^3/uL (0.0-0.1); Basophils % 1.4 %; Eosinophils # 0.1 10^3/uL (0.0-0.8); Hematocrit 36.3 % (37.0-47.0); Lymphocytes # 0.7 10^3/uL (0.8-4.8); Lymphocytes % 9.9 %; Mean Corpuscular HGB Conc 30.3 g/dL (30.0-36.0); Mean Corpuscular Hemoglobin 25.2 pg (28.0-34.0); Mean Corpuscular Volume 83.3 fl (81-99); Mean Platelet Volume 8.8 fL (7.4-10.4); Monocytes % 13.5 %; Neutrophils # 5.37 10^3/uL (1.8-7.7); Neutrophils % 73.9 %; Nucleated Red Blood Cells % 0.4 %; Platelet Count 100 10^3/cmm (130-400); Red Blood Count 4.36 10^6/uL (4.1-5.3); Red Cell Distribution Width 19.1 % (12.1-15.1); White Blood Count 7.3 10^3/uL (4.0-10.0)
[2021-01-12 03:31] LABS: Anion Gap 8.1 (5-19); Blood Urea Nitrogen 8 mg/dL (8-23); Carbon Dioxide 37 mmol/L (22-29); Chloride 91 mmol/L (98-107); Glomerular Filtration Rate 123.4 mL/min (90-130); Glucose 104 mg/dL (65-115); Osmolality Calculated 273 mOsm/kg (285-295); Potassium 4.1 mmol/L (3.5-5.1); Sodium 132 mmol/L (136-145)
[2021-01-12] MEDS: ipratropium-albuterol 3 mL Neb INHALATION ×4 (03:35→22:45)
[2021-01-12] MEDS: sucralfate 1 gm Tablet PO ×4 (06:22→20:26)
--- NOTE | 2021-01-12 09:28 | PC.SOCIAL ---
IMM UPDATE Imm updated and given to the patient. Initialed, dated and timed and copy placed in chart.
[2021-01-12] MEDS: potassium chloride ER 10 mEq Tablet PO (09:45)
[2021-01-12] MEDS: metoprolol succinate ER (24 HR) 25 mg Tablet PO (09:45)
[2021-01-12] MEDS: sodium chlor 0.45% +KCl 20 mEq 20 MEQ/1,000 ML BAG 100 MEQ IV (09:45)
[2021-01-12] MEDS: fluconazole 100 mg Tablet PO (09:45)
[2021-01-12] MEDS: hydroxychloroquine 200 mg Tablet PO (09:53)
[2021-01-12] MEDS: HYDROcodone-acetaminophen 5-325 mg Tablet 1 TAB PO (09:54)
[2021-01-12] MEDS: nystatin 100,000 unit/mL UDC 5 mL 500000 UNIT PO (12:09)
[2021-01-12] MEDS: ALPRAZolam 0.5 mg Tablet 0.25 MG PO ×2 (12:14→20:27)
--- NOTE | 2021-01-12 13:57 | PM.PN ---
Subjective Subjective: Interval history: Patient used BiPAP overnight feeling much better PCO2 showed hypercapnia with low pH her last PCO2 was greater than 60 Discuss goals of care with the family and the patient, patient is opting for comfort measures/hospice considering significant decline in her health Vitals/I&O/Wt Last Vital Signs Temp 97.7 F 01/12/21 12:00 Pulse 102 H 01/12/21 12:00 Resp 17 01/12/21 12:00 BP 174/74 01/12/21 12:00 Pulse Ox 94 01/12/21 12:00 01/11/21 01/12/21 01/12/21 22:59 06:59 14:59 Intake Total 1480 / 2623.333 360 / 2983.333 1240 / 1240 Output Total 300 / 300 Balance 1480 / 2623.333 60 / 2683.333 1240 / 1240 Physical Exam Narrative: EXAM NARRATIVE: Patient is much awake and alert today Saturating well on 3 urine S1, S2 no active signs of heart failure Diminished bilateral breath sounds no active wheezing due to poor airflow Soft abdomen Lower extremity no edema EOMI, PERRLA Awake alert and attentive GCS 15 Data : 01/12/21 02:03 01/12/21 02:03 A&P Assessment and plan (1) Chronic anticoagulation: Status: Acute (2) Acute anemia: Status: Acute (3) Chronic hypercapnic respiratory failure: Status: Acute (4) Anemia: Status: Acute (5) Pulmonary nodule: Status: Acute (6) Chronic respiratory failure with hypoxia: Status: Acute (7) COPD (chronic obstructive pulmonary disease): Status: Acute Additional A&P Information Acute normocytic blood loss anemia Patient was complaining of black tarry stool stool guaiac positive Not candidate for colonoscopy due to severe COPD EGD unremarkable other than gastritis Patient would like to try her Eliquis if her hemoglobin stays stable for next 24 hours Status post 4 units PRBC Pulmonary nodule with suspicion for malignancy patient does not want to pursue histopathological diagnosis, or chemotherapy with gradual decline in her health and functional status might opt for comfort measures/hospice Chronic hypoxic hypercapnic respiratory failure with acute exacerbation after EGD Her PCO2 worsened after EGD, she used BiPAP overnight and felt better She seems to be BiPAP dependent at this point her last PCO2 was greater than 60 She is BiPAP dependent because of her poor lung compliance with underlying malignancy and severe stage of COPD, there is a risk of due to respiratory failure if she goes home without BiPAP She has failed CPAP which she has been using at home DNR/DNI goals of care discussed with the patient and the family Cardiac diet DVT prophylaxis, start Eliquis tomorrow, Attestations Medical Necessity Statement*: Anticipating discharge tomorrow Time Spent in Patient Care: 16 - 35 minutes Coding Level of Care Code Acute Claim Benefit Specialist for Chg Fwd Diagnoses Chronic anticoagulation Z79.01 Acute anemia D64.9 Chronic hypercapnic respiratory failure J96.12 Anemia D64.9 Pulmonary nodule R91.1 Chronic respiratory failure with hypoxia J96.11 COPD (chronic obstructive pulmonary disease) J44.9
--- NOTE | 2021-01-12 14:34 | PC.NURSE ---
Bed sore, stage 2, mid sacral area. 3 inches wide, optifoam 4x4 applied at 1430.
--- NOTE | 2021-01-12 15:22 | PC.CHAP ---
Pastoral Care Encounter/Spiritual Assessment Type of Contact [] Declined neck skewer visit [] Patient/Family/Request visit [] Outpatient visit [xx] Follow-up visit [] Physician referral [] Code/Alert [xx] Routine visit [] Staff referral [] Actively dying [] Patient sleeping [] Family support [] [] Out of room [] Palliative care [] [] Receiving care in room [] Pre-surgical visit [] Trauma [] Long length of stay [] ICU visit [] Other: Relational/Emotional Strength [xx] Patient feels connected with others/family/visitors/staff [] Distress [] Loneliness/isolation [] Abandonment Spirituality of Patient [xx] Person of Phyllis [xx] Attends Synagogue of their Phyllis [xx] Believes in Prayer [xx] Reads Bible or Taoist materials [] There are Spiritual issues to be addressed School Bus Driver Interventions [xx] Prayer [xx] Active listening [xx] Non-anxious presence [] Spiritual/emotional support [] Crisis/trauma care [] Spiritual counseling [] Bereavement support [] Provided bereavement packet [] Provided Bible/devotional materials [] Provided toy/stuffed animal, coloring book to patient or family member [] Provided Communion [] Anointing/Randolph [] Salvation [xx] Completed spiritual assessment [] Other: Impact on Illness or Injury [] Angry [] Fearful [] Anxious [] Often cries [] Exhaustion [] Unable to work [] Unable to attend congregational [] Unable to walk/stand [] Unable to read [] Unable to drive [] Unable to eat/drink [] Unable to sleep [] Unable to be with family [] Patient intubated [] Other: Summary Patient feeling better especially since daughter just arrived for afternoon visit. Time spent with patient 5 minutes
[2021-01-12] MEDS: HYDROmorphone 1 mg/mL INJ 1 mL 0.4 MG IVP (20:38)
[2021-01-12] MEDS: saline nasal spray 44mL Btl 1 SPRAY NASAL (23:47)
[2021-01-12] MEDS: phenol oral Spray 177 mL 3 SPRAY MUCOUS MEM (23:47)
[2021-01-12] MEDS: guaiFENesin 100 mg/5 mL UDC 10 mL PO (23:48)
[2021-01-13] VITALS (12 sets, daily range): BP systolic 132–173; BP diastolic 65–89; PULSE 63–116; RESP 16–20; TEMP 36.3–36.8; O2SAT 95–100
[2021-01-13] MEDS: HYDROcodone-acetaminophen 5-325 mg Tablet 1 TAB PO ×2 (03:03→19:29)
[2021-01-13] MEDS: ALPRAZolam 0.5 mg Tablet 0.25 MG PO ×2 (03:04→12:10)
[2021-01-13] MEDS: sucralfate 1 gm Tablet PO ×4 (06:38→20:45)
[2021-01-13 07:04] LABS: Basophils # 0.1 10^3/uL (0.0-0.1); Basophils % 1.5 %; Eosinophils # 0.1 10^3/uL (0.0-0.8); Eosinophils % 0.7 %; Hematocrit 37.3 % (37.0-47.0); Hemoglobin 11.6 g/dL (11.5-15.3); Lymphocytes # 0.6 10^3/uL (0.8-4.8); Lymphocytes % 9.5 %; Mean Corpuscular HGB Conc 31.1 g/dL (30.0-36.0); Mean Corpuscular Hemoglobin 25.8 pg (28.0-34.0); Mean Corpuscular Volume 82.9 fl (81-99); Mean Platelet Volume 9.6 fL (7.4-10.4); Monocytes % 14.8 %; Neutrophils # 4.93 10^3/uL (1.8-7.7); Neutrophils % 73.2 %; Nucleated Red Blood Cells % 0.3 %; Platelet Count 104 10^3/cmm (130-400); Red Cell Distribution Width 19.6 % (12.1-15.1); White Blood Count 6.7 10^3/uL (4.0-10.0)
[2021-01-13 07:36] LABS: Anion Gap 6.1 (5-19); Blood Urea Nitrogen 4 mg/dL (8-23); Calcium 8.3 mg/dL (8.5-10.5); Carbon Dioxide 39 mmol/L (22-29); Chloride 95 mmol/L (98-107); Glomerular Filtration Rate 159.7 mL/min (90-130); Glucose 81 mg/dL (65-115); Osmolality Calculated 278 mOsm/kg (285-295); Potassium 4.1 mmol/L (3.5-5.1); Sodium 136 mmol/L (136-145)
[2021-01-13] MEDS: ipratropium-albuterol 3 mL Neb INHALATION (07:42)
[2021-01-13] MEDS: metoprolol succinate ER (24 HR) 25 mg Tablet PO (08:20)
[2021-01-13] MEDS: potassium chloride ER 10 mEq Tablet PO (08:20)
[2021-01-13] MEDS: pantoprazole DR 40 mg Tablet PO (08:20)
[2021-01-13] MEDS: methylphenidate 10 mg Tablet 5 MG PO (12:10)
[2021-01-13] MEDS: HYDROmorphone 1 mg/mL INJ 1 mL 0.4 MG IVP ×2 (12:11→21:02)
[2021-01-13] MEDS: lidocaine 2% viscous 15 ML, aluminum-mag hydrox-simethicon 30 ML, sucralfate oral liq 1 GM PO (12:13)
--- NOTE | 2021-01-13 13:35 | PM.PN ---
Subjective Subjective: Interval history: Hemoglobin is stable Did talk with the patient and her daughter today Patient agreeable to trial of Ritalin to see if that would improve her mood and energy She has not been able to eat much, feeling extremely lethargic and fatigued her son has tried to reach out to hospice companies, she does have hospice equipment at home now as per my conversation with the case management Vitals/I&O/Wt Last Vital Signs Temp 98.0 F 01/13/21 12:00 Pulse 107 H 01/13/21 12:00 Resp 18 01/13/21 12:11 BP 157/79 01/13/21 12:00 Pulse Ox 98 01/13/21 12:00 01/12/21 01/13/21 01/13/21 22:59 06:59 14:59 Intake Total 860 / 2100 480 / 2580 100 / 100 Output Total 400 / 400 500 / 500 Balance 460 / 1700 480 / 2180 -400 / -400 Physical Exam Narrative: EXAM NARRATIVE: Patient was in semi-Huggins position saturating well on 3 to nasal cannula Looks fatigued and lethargic however no neurological deficit EOMI, PERRLA S1, S2 variable Diminished bilateral breath sounds no audible stridor or wheezing Abdomen soft with mild tenderness midepigastric left lower quadrant Lower extremity without edema Data : 01/13/21 06:17 01/13/21 06:17 A&P Assessment and plan (1) Occult blood positive stool: Status: Acute (2) Chronic anticoagulation: Status: Acute (3) Acute anemia: Status: Acute (4) Chronic hypercapnic respiratory failure: Status: Acute (5) Chronic respiratory failure with hypoxia: Status: Acute (6) Pulmonary nodule: Status: Acute Additional A&P Information Acute normocytic blood loss anemia: Hemoglobin stable after 4 units of PRBC EGD showing gastritis no active bleeding ulcer Continue Protonix Eliquis initiated yesterday, no recurrence of black tarry stools however please note her p.o. intake has been poor Chronic hypoxic hypercapnic respiratory failure She had exacerbation after EGD which improved with use of BiPAP, she is using BiPAP overnight To decrease her chances of decline requested BiPAP via [facility] Failed CPAP trial at home Patient is still adamant that she does not want any investigation for pulmonary nodules For her persistent left lower quadrant pain I would request CT abdomen pelvis Persistent headache, I would not repeat CT head as her recent cranial imaging including MRV, MRA and temporal bone CT was unremarkable DNR/DNI Cardiac diet DVT prophylaxis Eliquis Attestations Medical Necessity Statement*: Anticipating discharge in next 24 hours Time Spent in Patient Care: less than 15 minutes Coding Level of Care Code Acute Supervisor Testing for Chg Fwd Diagnoses Occult blood positive stool R19.5 Chronic anticoagulation Z79.01 Acute anemia D64.9 Chronic hypercapnic respiratory failure J96.12 Chronic respiratory failure with hypoxia J96.11 Pulmonary nodule R91.1
--- NOTE | 2021-01-13 13:41 | CTR_ITS ---
PROCEDURE INFORMATION: Exam: CT Abdomen And Pelvis Without Contrast Exam date and time: 01/13/2021 1:41 PM Age: 65 years old Clinical indication: Abdominal pain; Localized; Lower; Additional info: Persistent left lower quadrant pain TECHNIQUE: Imaging protocol: Computed tomography of the abdomen and pelvis without contrast. Radiation optimization: All CT scans at this facility use at least one of these dose optimization techniques: automated exposure control; mA and/or kV adjustment per patient size (includes targeted exams where dose is matched to clinical indication); or iterative reconstruction. COMPARISON: CT chest abd pel w con* 01/27/2020 2:18 PM RADIATION DOSE METRICS: Total DLP (mGy-cm): 746.75 FINDINGS: Lungs: Granulomatous disease noted lung bases. Mild compressive atelectasis in the bilateral lower lobes. Pleural spaces: Small bilateral pleural effusions. Liver: Minimal granulomatous disease of the liver. No acute hepatic abnormality. Gallbladder and bile ducts: No calcified gallstones in the gallbladder. No gallbladder wall thickening. No pericholecystic fluid. No biliary dilatation. Pancreas: The pancreas is normal in appearance. No pancreatic duct dilatation. Spleen: Calcified granulomas are noted in the spleen. Adrenal glands: The adrenal glands appear within normal limits. Kidneys and ureters: The kidneys are normal in morphology. No hydronephrosis. No solid mass. Stomach and bowel: No acute gastric abnormality demonstrated. The small bowel is unremarkable as demonstrated. No acute abnormality/inflammatory change of the colon. Appendix: No evidence of appendicitis. Intraperitoneal space: No free air. No significant fluid collection. Vasculature: The aorta is atherosclerotic. No aortic aneurysm. Lymph nodes: No enlarged lymph nodes. Urinary bladder: Unremarkable as visualized. Reproductive: The uterus is not visualized, consistent with hysterectomy. Bones/joints: Degenerative spine changes are noted. No fracture or other acute osseous abnormality. Soft tissues: Diffuse subcutaneous edema throughout the abdomen and pelvis. CT/CT abdomen pelvis wo con [id number] IMPRESSION: 1. No acute abnormality demonstrated in the abdomen and pelvis. 2. Diffuse subcutaneous edema throughout the abdomen and pelvis. 3. Findings of old granulomatous disease are identified. Radiation Dose CTDIVOL = (mGy): DLP = 746.75 (mGy-cm)
[2021-01-13] MEDS: apixaban 5 mg Tablet 2.5 MG PO (18:29)
--- NOTE | 2021-01-13 19:13 | PC.NURSE ---
New address for hospice: [address] [place] [address], [place] [address]. Daughter is Maeve Nichole [phone].
[2021-01-14] VITALS (10 sets, daily range): BP systolic 139–160; BP diastolic 72–77; PULSE 108–116; RESP 16–24; TEMP 36.8–36.9; O2SAT 93–96
[2021-01-14] MEDS: HYDROmorphone 1 mg/mL INJ 1 mL 0.4 MG IVP ×4 (04:17→23:45)
[2021-01-14] MEDS: sucralfate 1 gm Tablet PO ×4 (06:22→21:01)
--- NOTE | 2021-01-14 06:35 | PC.NURSE ---
SHIFT SUMMARY Has rested well tonight. Has received prn meds of po Hydrocodone and IV Dilaudid for c/o headache. Says the Dilaudid helps the best. Is SOB easily. Occ prod cough. O2 at 3l per NC. Likes room very cool and fan on as well. Very pleasant. Gets up to [facility] to urinate
[2021-01-14 06:53] LABS: Hematocrit 41.2 % (37.0-47.0); Hemoglobin 12.7 g/dL (11.5-15.3)
[2021-01-14] MEDS: ondansetron 2 mg/ML SDV 2 mL 4 MG IVP ×2 (08:49→23:45)
[2021-01-14] MEDS: methylphenidate 10 mg Tablet 5 MG PO ×2 (08:49→17:10)
[2021-01-14] MEDS: metoprolol succinate ER (24 HR) 25 mg Tablet PO (08:50)
[2021-01-14] MEDS: pantoprazole DR 40 mg Tablet PO (08:50)
[2021-01-14] MEDS: apixaban 5 mg Tablet 2.5 MG PO ×2 (08:50→17:10)
--- NOTE | 2021-01-14 09:34 | PC.SOCIAL ---
IMM update IMM updated with patient. Copy provided of Pg 2. Verbalized an understanding. Initialled, dated, timed, and placed in chart.
--- NOTE | 2021-01-14 14:15 | PM.PN ---
Subjective Subjective: Interval history: Patient is stating that she would like to continue her Eliquis to reduce suffering from a stroke She did extremely better on Ritalin her mood and energy appetite has picked up Hemoglobin stable 12.7 Daughter at the bedside Vitals/I&O/Wt Last Vital Signs Temp 98.4 F 01/14/21 04:00 Pulse 108 H 01/14/21 09:49 Resp 17 01/14/21 09:49 BP 139/75 01/14/21 04:00 Pulse Ox 93 01/14/21 09:49 01/13/21 01/14/21 01/14/21 22:59 06:59 14:59 Intake Total 150 / 490 Output Total 400 / 900 Balance -250 / -410 Physical Exam Narrative: EXAM NARRATIVE: Patient was very pleasant and cooperative this morning, her mood and energy definitely has improved since yesterday Still endorsing mild epigastric pain on eating however no signs of peritonitis Lower extremity trace edema Variable S1-S2 Diminished bilateral airflow no active wheezing Saturating well on 3 L EOMI, PERRLA no neurological deficits noted Data : 01/14/21 05:33 01/13/21 06:17 A&P Assessment and plan (1) Occult blood positive stool: Status: Acute (2) Chronic anticoagulation: Status: Acute (3) Acute anemia: Status: Acute (4) Chronic hypercapnic respiratory failure: Status: Acute (5) Exertional chest pain: Status: Acute (6) Pulmonary nodule: Status: Acute (7) Anemia: Status: Acute (8) COPD (chronic obstructive pulmonary disease): Status: Acute (9) Chronic respiratory failure with hypoxia: Status: Acute Additional A&P Information Acute normocytic blood loss anemia hemoglobin stable after 4 units We will continue Protonix Patient is stating that she would like to continue her Eliquis to prevent stroke Chronic hypoxic hypercapnic restaurant failure compliant with BiPAP now feeling better with BiPAP use overnight She is getting BiPAP set up at her daughter's home Abdominal pain: CT abdomen pelvis was unremarkable other than subcutaneous edema DNR/DNI Cardiac diet DVT prophylaxis currently on Eliquis 2.5 mg twice a day Attestations Medical Necessity Statement*: Plan discharge on Friday Time Spent in Patient Care: less than 15 minutes Coding Level of Care Code Acute Injection Mold Tooling Technician for Chg Fwd Diagnoses Occult blood positive stool R19.5 Chronic anticoagulation Z79.01 Acute anemia D64.9 Chronic hypercapnic respiratory failure J96.12 Exertional chest pain R07.9 Pulmonary nodule R91.1 Anemia D64.9 COPD (chronic obstructive pulmonary disease) J44.9 Chronic respiratory failure with hypoxia J96.11
[2021-01-14 17:39] LABS: ABG PCO2 76.5 mmHg (35-45)
[2021-01-14] MEDS: ALPRAZolam 0.5 mg Tablet 0.25 MG PO (21:02)
[2021-01-14] MEDS: diclofenac 1% Topical Gel 100 gm 4 APPLIC TOPICAL (21:39)
[2021-01-15 03:47] VITALS: BP 149/73; PULSE 109; RESP 22; TEMP 36.8; O2SAT 95
[2021-01-15] MEDS: HYDROcodone-acetaminophen 5-325 mg Tablet 1 TAB PO ×2 (03:50→09:01)
[2021-01-15] MEDS: sucralfate 1 gm Tablet PO ×2 (06:05→11:27)
[2021-01-15 06:32] LABS: Hematocrit 37.2 % (37.0-47.0); Hemoglobin 11.2 g/dL (11.5-15.3)
[2021-01-15 07:14] VITALS: BP 154/79; PULSE 108; RESP 18; TEMP 36.9; O2SAT 97
[2021-01-15 07:50] VITALS: PULSE 105; RESP 18; O2SAT 97
[2021-01-15] MEDS: apixaban 5 mg Tablet 2.5 MG PO (07:51)
[2021-01-15] MEDS: pantoprazole DR 40 mg Tablet PO (07:51)
[2021-01-15] MEDS: methylphenidate 10 mg Tablet 5 MG PO (07:52)
[2021-01-15] MEDS: metoprolol succinate ER (24 HR) 25 mg Tablet PO (07:52)
[2021-01-15] MEDS: ondansetron 4 MG Tablet PO (09:27)
[2021-01-15 12:19] VITALS: PULSE 105; RESP 18; TEMP 36.3; O2SAT 97
--- NOTE | 2021-01-15 15:38 | P.DS_ITS ---
Discharge Providers Date of Admission: 01/09/21 13:09 Date of Discharge: January 15, 2021 Attending Provider at Admission: Grace Howard MD Attending Provider at Discharge: Grace Howard MD Primary Care Provider: Chery Merino MD Diagnoses at Discharge Discharge Diagnosis (1) Occult blood positive stool: Status: Acute (2) Chronic anticoagulation: Status: Acute (3) Acute anemia: Status: Acute (4) Chronic hypercapnic respiratory failure: Status: Acute (5) Exertional chest pain: Status: Acute (6) Pulmonary nodule: Status: Acute (7) Anemia: Status: Acute (8) COPD (chronic obstructive pulmonary disease): Status: Acute (9) Chronic respiratory failure with hypoxia: Status: Acute Reason for Visit Reason for Visit: GENERALIZED WEAKNESS Hospital Course Hospital Course HPI done by myself Tiana Wayne is a 65 year old female who carries history of 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 Patient is stating that she has seen Dr. Carlson for her COPD and lung nodules. ABG was obtained which revealed severe anemia she was asked to go to [facility] and get CBC it revealed significantly low hemoglobin of 3.0 and she was asked to go to the ER for further evaluation. Patient is stating that for last 3 to 4 weeks she has been experiencing extreme fatigue, lethargy, she has not noticed any bright bleed per rectum, previous colonoscopy was about 6 years ago never had any history of ulcers or gastritis but endorsing acid reflux. Never had any profuse bleeding episodes in the past, she takes Eliquis for pulmonary embolism. Her last dose was this morning at 4 AM. She has not noticed hematemesis, hemoptysis, nocturnal fever. Patiently she has been noticing excessive sneezing, sinus infection and change of her voice denies previous history of thyroid abnormality. Stating recently ENT did MRI of her head and neck and showed scar of previous tonsillar surgery. She notices black tarry stool intermittently however not with every bowel movement. Diagnostics in the ER revealed hypotension, first blood unit was given in bolus fashion which improved her blood pressure, her heart rate and blood pressure improved in total she received 2 units I have requested tomorrow to make total of 4 no active bleeding evidence however stool guaiac positive Dr. Casarez has evaluated her and planning to do endoscopy and colonoscopy after 48 hours of last Eliquis dose She would not need any reversal agent Hospital course Patient was admitted for management of acute blood loss anemia status post 4 units PRBC her hemoglobin came up to 12 and remained between 11 and 12 throughout her hospitalization despite initiation of her Eliquis. EGD revealed gastritis however no active bleeding ulcers. Patient was complaining of midepigastric pain CT abdomen pelvis revealed subcutaneous edema otherwise no acute pathological findings. Considering decline in her functional status, suspicion for malignancy for left upper lobe pulmonary nodule, hoarseness of voice, weight loss, night sweats and underlying COPD, family decided to pursue comfort measures. Patient herself stated that she would not like to undergo any investigation, she would refuse chemotherapy if it is a cancer. Patient will be discharged home with comfort measures, she will get BiPAP set up at home as well. She will be living with her daughter for now onwards. Of note, Ritalin was used to improve her energy and patient was very happy with her progress her appetite increase her mood and energy increased as well. No active GI bleed during hospitalization, risks and benefits of continuing Eliquis were discussed with the patient and her family, patient decided to continue Eliquis I have given her a prescription of CBC to be checked within 3 days as well. She was deemed not a suitable candidate for colonoscopy because of her end-stage COPD Physical Exam Narrative: EXAM NARRATIVE: Patient was very pleasant and cooperative this morning, her mood and energy definitely has improved since yesterday Still endorsing mild epigastric pain on eating however no signs of peritonitis Lower extremity trace edema Variable S1-S2 Diminished bilateral airflow no active wheezing Saturating well on 3 L EOMI, PERRLA no neurological deficits noted Discharge Data Data Completed and Pending: Completed Studies During Hospitalization Category Date Time Status CT abdomen pelvis wo con [id number] Rout ine Cat Scan 01/13/21 13:41 Completed XR chest 1V nancy ble [id number] Urgent Exams 01/09/21 11:17 Completed Labs from last 24 hours 01/15/21 01/11/21 04:57 21:31 Hgb 11.2 L Hct 37.2 ABG pCO2 76.5 H* Vitals: Last Vital Signs Temp 97.3 F L 01/15/21 12:19 Pulse 105 H 01/15/21 12:19 Resp 18 01/15/21 12:19 BP 154/79 01/15/21 07:14 Pulse Ox 97 01/15/21 12:19 Discharge Plan Discharge Patient Disposition: Hospice - Home Condition: Stable Prescriptions: New sucralfate 1 gram Tablet 1 g PO AC&BEDTIME 30 Days Qty: 90 RF: 3 oxycodone 10 mg tablet 5 mg PO Q8H PRN (Reason: pain) Qty: 20 RF: 0 Senna Laxative 8.6 mg tablet 8.6 mg PO DAILY Qty: 30 RF: 0 methylphenidate HCl 10 mg Tablet 5 mg PO BID 10 Days Qty: 20 RF: 0 omeprazole 20 mg capsule,delayed release(DR/EC) 20 mg PO BID Qty: 30 RF: 3 Continued potassium chloride 10 mEq capsule, extended release 10 meq PO DAILY RF: 0 sertraline [Zoloft] 25 mg tablet 25 mg PO DAILY MDD see pharmacy comment RF: 0 albuterol sulfate [Ventolin HFA] 90 mcg/actuation HFA aerosol inhaler 1 puff INHALATION Q6H PRN (Reason: shortness of breath or wheezing) Qty: 8.5 RF: 3 metoprolol succinate 25 mg capsule,sprinkle,ER 24hr 25 mg PO BID RF: 0 Eliquis 2.5 mg tablet 2.5 mg PO BID RF: 0 hydrocodone-acetaminophen 5-325 mg tablet 1 tab PO Q6H PRN (Reason: Pain) RF: 0 cholecalciferol (vitamin D3) 25 mcg (1,000 unit) tablet 50 mcg PO DAILY RF: 0 nystatin 100,000 unit/gram cream 1 applic TOPICAL BID PRN (Reason: Rash) RF: 0 triamcinolone acetonide 0.1 % cream 1 applic TOPICAL BID PRN (Reason: Rash) RF: 0 clobetasol 0.05 % cream 1 applic topical BID RF: 0 desonide 0.05 % cream 1 applic topical BID RF: 0 furosemide [Lasix] 20 mg tablet 40 mg PO DAILY RF: 0 Breo Ellipta 200-25 mcg/dose blister with device 1 inh inhalation DAILY Qty: 60 RF: 3 nystatin 100,000 unit/mL suspension 5 ml PO Q6H 14 Days Qty: 280 RF: 0 diclofenac sodium 1 % gel 2 g TOPICAL QID PRN (Reason: Pain) RF: 0 omeprazole 40 mg capsule,delayed release(DR/EC) 40 mg PO DAILY 30 Days Qty: 30 RF: 3 prednisone 2.5 mg tablet See Rx Instructions PO DAILY 30 Days Qty: 30 RF: 1 Xanax 0.25 mg tablet 0.25 mg PO DAILY PRN (Reason: anxiety) 14 Days Qty: 30 RF: 0 Discontinued hydroxychloroquine [Plaquenil] 200 mg tablet 200 mg PO DAILY Qty: 90 RF: 1 leflunomide 20 mg tablet 20 mg PO DAILY Qty: 90 RF: 1 fluconazole 100 mg tablet 100 mg PO DAILY Qty: 14 RF: 0 omega 1-fbu-pbc-fish oil [Fish Oil] 1,200 (144-216) mg Capsule 1 cap PO DAILY RF: 0 azithromycin 250 mg tablet 250 mg PO .MON, WEDS, FRI RF: 0 Discharge Orders: Discharge Order (Routine); Ordered 01/15/21 Ordered By: Grace Howard Other Ambulatory Orders: Complete Blood Count w/Auto (Routine) Timeframe: 3 Days Location: Determined by Patient Ordered By: Grace Howard Referrals: [facility] [Outside] Chery Merino MD [Primary Care Provider] - Discharge Diet: Cardiac Discharge Activity: Resume usual activity Patient Instructions: Sucralfate (By mouth), Laxative, Stimulant (By mouth), Oxycodone, Rapid Release (By mouth), Hospice Care, GI Discharge Instructions Discharge Attestations Time Spent in Discharge Care*: less than 30 min Quality Metrics Clinical Quality Measures During this hospital stay, did patient experience: None Coding Level of Care Code Acute Chg FW DC note Diagnoses Occult blood positive stool R19.5 Chronic anticoagulation Z79.01 Acute anemia D64.9 Chronic hypercapnic respiratory failure J96.12 Exertional chest pain R07.9 Pulmonary nodule R91.1 Anemia D64.9 COPD (chronic obstructive pulmonary disease) J44.9 Chronic respiratory failure with hypoxia J96.11
== END 2021-01-15 12:20 | disposition hospice, home (50) | DRG 812 ==
LOC: ER 13:09 → MEDSURG 18:13
PROVIDERS: Family Medicine; Admitting Provider Internal Medicine; Emergency Provider Emergency Medicine; PCP Family Medicine; Visit Provider Internal Medicine
PROC: 0DJ08ZZ Inspection of Upper Intestinal Tract, Via Natural or Artificial Opening Endoscopic (ICD-10-PCS; CPT 43235; principal; 2021-01-11 13:30)
DX: D62 Acute posthemorrhagic anemia (principal); J96.11 Chronic respiratory failure with hypoxia; J96.12 Chronic respiratory failure with hypercapnia; M32.9 Systemic lupus erythematosus, unspecified; J44.9 Chronic obstructive pulmonary disease, unspecified; I25.10 Atherosclerotic heart disease of native coronary artery without angina pectoris; M81.0 Age-related osteoporosis without current pathological fracture; K21.9 Gastro-esophageal reflux disease without esophagitis; F40.240 Claustrophobia; Z66 Do not resuscitate; G44.89 Other headache syndrome; Z82.49 Family history of ischemic heart disease and other diseases of the circulatory system; Z80.1 Family history of malignant neoplasm of trachea, bronchus and lung; Z79.01 Long term (current) use of anticoagulants; Z53.29 Procedure and treatment not carried out because of patient's decision for other reasons; Z90.710 Acquired absence of both cervix and uterus; Z90.49 Acquired absence of other specified parts of digestive tract; Z86.711 Personal history of pulmonary embolism; Z87.891 Personal history of nicotine dependence
CPT/HCPCS: 12345; 36415; 36416; 36430; 36600; 43235; 71045; 74176; 80048; 80053; 81003; 82728; 82803; 82962; 83540; 83550; 83735; 83880; 84443; 84484; 85014; 85018; 85025; 85610; 86850; 86900; 86920; 93005; 94640; 94660; 94762; 96374; 96375; 99285; C9113; J1170; J2060; J2270; J2405; J2704; J7030; P9016; P9040; Q0162